=== PATIENT | male | born 1965 | race African-American/Black ===

== ENCOUNTER 2018-09-03 14:26 | Inpatient (IN) | payer OTHER ==
[2018-09-03 17:43] VITALS: BMI 30.2
--- NOTE | 2018-09-03 20:45 | HP ---
"CIWA Score - CIWA Score Nausea/Vomitin-Mild Nausea/No Vomiting Muscle Tremors: 3 Anxiety: 1-Mildly Anxious Agitation: 3 Paroxysmal Sweats: 4-Forehead w/Sweat Beads Orientation: 0-Oriented Tacttile Disturbances: 0-None Auditory Disturbances: 0-None Visual Disturbances: 0-None Headache: 2-Mild CIWA-Ar Total Score: 14 Admission [facility] Chief Complaint: Here for alcohol withdrawal. Allergies/Adverse Reactions: Allergies Allergy/AdvReac Type Severity Reaction Status Date / Time quetiapine [From Seroquel] Allergy Severe Verified 09/03/18 17:52 History of Present Illness: Started drinking alcohol at age 15. Has tried to stop drinking on own, tried out -patient help, but has never been in detox or rehab. Longest period of sobriety 1 day. Denies hx seizures. States hx of blackouts. Hx: HTN, CHF, Stents, Heart attack, DM, Tooth chipped/broken, Recent dizzy episode. Patient states on Plavix 75 mg Daily, ASA 81 mg Daily, Lantus 15 HS, Metformin 1000 mg PO BID, Albuterol - MDI, Symbicort, Lisinopril ? mg Daily and other B/P meds, Naproxen 375 mg PO q12h prn. States meds were recently filled and bag was lost. Pharmacy [facility] in [place] ([phone]) Search Terms: Abhinav Tristan, 1965 Search Date: 09/03/2018 08:41:36 PM The Drug Utilization Report below displays all of the controlled substance prescriptions, if any, that your patient has filled in the last twelve months. The information displayed on this report is compiled from pharmacy submissions to the Department, and accurately reflects the information as submitted by the pharmacies. This report was requested by: Kathy Rodriguez | Reference #: [id number] Others' Prescriptions Patient Name: Abhinav Tristan Date: 1965 Address: [address] [place] [address] Sex: Male Rx Written Rx Dispensed Drug Quantity Days Supply Prescriber Name 01/02/2018 01/02/2018 oxycodone-acetaminophen 7.5-325 mg tablet 12 4 Marco Michelle 01/02/2018 01/02/2018 alprazolam 0.5 mg tablet 6 3 Marco Michelle 12/25/2017 12/26/2017 chlordiazepoxide 25 mg capsule 2 1 Yulia Bronson () Patient Name: Abhinav Tristan Date: 1965 Address: [address] [place] [address] Sex: Male Rx Written Rx Dispensed Drug Quantity Days Supply Prescriber Name 12/25/2017 12/25/2017 oxycodone hcl 5 mg tablet 10 5 Yulia Bronson () Exam Limitations: No Limitations - Ebola screening Have you traveled outside of the country in the last 21 days: No Have you had contact with anyone from an Ebola affected area: No Have you been sick,other than usual withdrawal symptoms: No Do you have a fever: No - Review of Systems Constitutional: Diaphoresis, Changes in sleep (Drinks self to sleep) EENT: reports: Blurred Vision (Wears glasses), Dental Problems (Chipped and broken teeth. Started on Pen VK on 09/01/18 for 10 days..), Other (Increased pigments in eyes requiring sunglasses.) Respiratory: reports: SOB with Exertion (w/ walking stairs), Other (COPD) Cardiac: reports: Other (Hx Heart attack and CHF. Recent angioplast w/ stents. Takes Plavix and aspirin daily.) GI: reports: Indigestion (Acid reflux.) : reports: No Symptoms Reported Musculoskeletal: reports: Joint Pain (Occ scattered joint pain) Integumentary: reports: No Symptoms Reported Neuro: reports: Headache (r/t withdrawal), Tremors Endocrine: reports: No Symptoms Reported Hematology: reports: No Symptoms Reported Psychiatric: reports: Judgement Intact, Orientated x3, Agitated, Anxious, Depressed (Denies thoughts of harming self or others) Patient History - Patient Medical History Hx Asthma: No Hx Chronic Obstructive Pulmonary Disease (COPD): No Hx Cardiac Disorders: Yes Hx Hypertension: No Hx Seizures: No Hx Diabetes: No Hx Gastrointestinal Disorders: No Hx Genitourinary Disorders: No Hx Sexually Transmitted Disorders: No Hx Renal Disease (ESRD): No Hx Depression: Yes Hx Suicide Attempt: No Hx Schizophrenia: No - Patient Surgical History Past Surgical History: No Hx Neurologic Surgery: No Hx Cataract Extraction: No Hx Cardiac Surgery: No Hx Lung Surgery: No Hx Breast Surgery: No Hx Breast Biopsy: No Hx Abdominal Surgery: No Hx Appendectomy: No Hx Cholecystectomy: No Hx Genitourinary Surgery: No Hx Section: No Hx Orthopedic Surgery: No Anesthesia Reaction: No - PPD History Documented Results: Negative w/o proof Implanted On Prior [facility] Admission?: No PPD to be Administered?: Yes - Smoking Cessation Smoking history: Never smoked Have you smoked in the past 12 months: No Aproximately how many cigarettes per day: 10 Hx Chewing Tobacco Use: No Initiated information on smoking cessation: Yes 'Breaking Loose' booklet given: 09/03/18 - Substance & Tx. History Hx Alcohol Use: Yes Hx Substance Use: Yes Substance Use Type: Alcohol Hx Substance Use Treatment: Yes (out-patient alcohol years ago) - Substances Abused Alcohol Route: Oral Frequency: Daily Amount used: liquor- 3 pints, beer- 12 pack Age of first use: 15 Date of Last Use: 09/03/18 Admission Physical Exam [facility] - Vital Signs Vital Signs: Vital Signs - 24 hr 09/03/18 17:24 Temperature 97.0 F L Pulse Rate 100 H Respiratory 18 Rate Blood Pressure 155/103 H - Physical General Appearance: Yes: Mild Distress, Tremorous, Sweating, Anxious HEENTM: Yes: EOMI, Hearing grossly Normal, RON, Other ([place] brown sclera.) Respiratory: Yes: Lungs Clear, Normal Breath Sounds, No Respiratory Distress Neck: Yes: No masses,lesions,Nodules, Supple Breast: Yes: Breast Exam Deferred Cardiology: Yes: Regular Rhythm, Regular Rate, S1, S2 Abdominal: Yes: Non Tender, Soft, Increased Bowel Sounds, Protuberent ( Increased abdominal adiposity) Genitourinary: Yes: Within Normal Limits Back: Yes: Normal Inspection Musculoskeletal: Yes: full range of Motion, Gait Steady Extremities: Yes: Normal Capillary Refill, Normal Range of Motion, Tremors ( Mild tremors of hands upon extension) Neurological: Yes: yard switcher II-XII NML intact, Fully Oriented, Alert, Motor Strength 5/5, Normal Mood/Affect Integumentary: Yes: Normal Color, Dry (Decreased skin turgor.), Warm Lymphatic: Yes: Within Normal Limits - Diagnostic (1) Alcohol dependence with uncomplicated withdrawal Current Visit: Yes Status: Acute (2) HTN (hypertension) Current Visit: Yes Status: Chronic Qualifiers: Hypertension type: essential hypertension Qualified Code(s): I10 - Essential (primary) hypertension (3) H/O heart artery stent Current Visit: Yes Status: Chronic (4) Diabetes Current Visit: Yes Status: Chronic Qualifiers: Diabetes mellitus type: type 2 Diabetes mellitus terminal gauger supervisor insulin use: with terminal gauger supervisor use Diabetes mellitus complication status: with unspecified complications Qualified Code(s): E11.8 - Type 2 diabetes mellitus with unspecified complications; Z79.4 - lobsterman (current) use of insulin (5) COPD (chronic obstructive pulmonary disease) Current Visit: Yes Status: Chronic Qualifiers: COPD type: unspecified COPD Qualified Code(s): J44.9 - Chronic obstructive pulmonary disease, unspecified (6) Hx of myocardial infarction Current Visit: No Status: Suspected (7) Dental infection Current Visit: Yes Status: Acute Comment: Started on antibiotics prior to admission. Cleared for Admission S - Detox or Rehab [facility] Level of Care: Medically Managed Detox Regimen/Protocol: Librium [facility] Breath Alcohol Content Breath Alcohol Content: 0.050 Urine Drug Screen - Results Drug Screen Negative: Yes"
[2018-09-03] MEDS ORDERED: LOPERAMIDE HCL 2 MG CAPSULE PO PRN (21:19)
[2018-09-03] MEDS ORDERED: MAG HYDROX/AL HYDROX/SIMETH 30 ML UNIT-DOSE CUP PO PRN (21:19)
[2018-09-03] MEDS ORDERED: MAGNESIUM HYDROX 2400MG/30ML ORAL SUSPENSION 30 ML CUP PO PRN (21:19)
[2018-09-03] MEDS ORDERED: ACETAMINOPHEN 325 MG TABLET (FP) PO PRN (21:19)
[2018-09-03] MEDS ORDERED: MAGNESIUM CITRATE 300 ML BOTTLE PO PRN (21:19)
[2018-09-03] MEDS ORDERED: chlordiazePOXIDE HCL 25 MG CAPSULE PO PRN (21:19)
[2018-09-03] MEDS ORDERED: chlordiazePOXIDE HCL 25 MG CAPSULE PO ONE (21:19)
[2018-09-03] MEDS ORDERED: MENTHOL/PHENOL 1 EACH UD MM PRN (21:19)
[2018-09-03] MEDS ORDERED: ALBUTEROL SO4 8 GM HFA INHALER IH PRN (21:30)
[2018-09-03] MEDS ORDERED: cloNIDine HCL 0.1 MG TABLET PO ONE (21:35)
[2018-09-03] MEDS ORDERED: MELATONIN 5 MG TABLETS PO PRN (22:00)
[2018-09-03] MEDS: chlordiazePOXIDE HCL 25 MG CAPSULE PO SCH (22:32)
[2018-09-03] MEDS: THIAMINE HCL 100 MG TABLET (FP) PO SCH (22:32)
[2018-09-03] MEDS: INSULIN (LEVEMIR) 100 UNITS/ML UNITS SQ SCH (22:33)
[2018-09-03] MEDS: PENICILLIN V POTASSIUM 500 MG TABLET PO SCH (23:16)
[2018-09-04] LABS: URINE APPEARANCE CLEAR; URINE BILIRUBIN NEGATIVE (<2.0 mg/dL); URINE COLOR LTYELLOW; URINE GLUCOSE (UA) 3+ (NEGATIVE); URINE KETONE NEGATIVE (NEGATIVE); URINE LEUK ESTERASE NEGATIVE (NEGATIVE); URINE NITRITE NEGATIVE (NEGATIVE); URINE PROTEIN NEGATIVE (NEGATIVE); URINE UROBILINOGEN NEGATIVE mg/dL (0.2-1.0)
[2018-09-04] MEDS: PENICILLIN V POTASSIUM 500 MG TABLET PO SCH ×4 (06:36→23:03)
[2018-09-04] MEDS: metFORMIN HCL 500 MG TABLET (FP) PO SCH ×2 (06:36→17:33)
[2018-09-04] MEDS: chlordiazePOXIDE HCL 25 MG CAPSULE PO SCH ×5 (06:38→22:43)
[2018-09-04 10:21] LABS: HEMATOCRIT 48.3 % (35.4-49); HEMOGLOBIN 15.4 GM/dL (11.7-16.9); MCH 30.2 pg (25.7-33.7); MCHC 31.8 g/dl (32.0-35.9); MEAN CELL VOLUME 94.9 fl (80-96); MEAN PLT VOLUME 8.4 fl (7.5-11.1); PLATELET COUNT 164 K/MM3 (134-434); RBC 5.09 M/mm3 (4.00-5.60); RDW 14.2 % (11.9-15.9); WHITE BLOOD COUNT 6.2 K/mm3 (4.0-10.0)
[2018-09-04] MEDS: CLOPIDOGREL BISULFATE 75 MG TABLET (FP) PO SCH (10:38)
[2018-09-04] MEDS: PRENATAL VITAMINS W/ FOLIC ACID TABLET (FP) PO SCH (10:38)
[2018-09-04] MEDS: ASPIRIN 81 MG CHEWABLE TABLETS PO SCH (10:38)
[2018-09-04] MEDS: NICOTINE 14 MG/24 HOURS TOPICAL PATCH TD SCH (10:39)
[2018-09-04] MEDS: NICOTINE POLACRILEX 2 MG GUM BC PRN ×2 (10:41→22:05)
[2018-09-04] MEDS ORDERED: chlordiazePOXIDE HCL 25 MG CAPSULE PO PRN (10:43)
[2018-09-04 11:23] LABS: ALBUMIN 3.1 g/dl (3.4-5.0); ALK PHOS 92 U/L (45-117); ANION GAP 11 MMOL/L (8-16); BILIRUBIN,TOTAL 0.5 mg/dL (0.2-1); BLOOD UREA NITROGEN 13 mg/dL (7-18); CALCIUM 8.2 mg/dL (8.5-10.1); CHLORIDE 105 mmol/L (98-107); CO2 26 mmol/L (21-32); CREATININE 0.7 mg/dL (0.55-1.3); GLUCOSE,RANDOM 183 mg/dL (74-106); POTASSIUM 3.7 mmol/L (3.5-5.1); SGOT/AST 21 U/L (15-37); SGPT/ALT 29 U/L (13-61); SODIUM 141 mmol/L (136-145); TOT PROT 6.5 g/dl (6.4-8.2)
--- NOTE | 2018-09-04 12:59 | EKG ---
Test Reason : Blood Pressure : / mmHG Vent. Rate : 085 BPM Atrial Rate : 085 BPM P-R Int : 148 ms QRS Dur : 110 ms QT Int : 352 ms P-R-T Axes : 068 036 058 degrees QTc Int : 418 ms NORMAL SINUS RHYTHM NORMAL ECG Confirmed by MD CRYSTAL, NICO ([id number]) on 09/04/2018 12:59:21 PM Referred By: Confirmed By:NICO ROJAS MD
--- NOTE | 2018-09-04 14:40 | PN ---
S CIWA - CIWA Score Nausea/Vomitin Muscle Tremors: 4-Moderate,w/Arms Extend Anxiety: 4-Mod. Anxious/Guarded Agitation: 4-Moderately Restless Paroxysmal Sweats: 3 Orientation: 0-Oriented Tacttile Disturbances: 0-None Auditory Disturbances: 0-None Visual Disturbances: 0-None Headache: 0-None Present CIWA-Ar Total Score: 17 [facility] Progress Note (SOAP) Subjective: Sweating, tremor, anxious; patient requesting to have librium whole because he cannot tolerate the liquid. Patient stated that he takes heart medication but doesn't know the names and is requesting that someone called his pharmacy to get the name of his medication ([facility] at [address] [place] [address]). Objective: 09/04/18 14:38 Last Vital Signs Temp Pulse Resp BP Pulse Ox 98.7 F 92 H 18 152/89 09/04/18 13:20 09/04/18 13:20 09/04/18 13:20 09/04/18 13:20 Laboratory Tests 09/03/18 09/03/18 09/03/18 17:17 22:22 22:29 WBC RBC Hgb Hct MCV MCH MCHC RDW Plt Count MPV Sodium Potassium Chloride Carbon Dioxide Anion Gap BUN Creatinine Creat Clearance w eGFR POC Glucometer 301 264 Random Glucose Calcium Total Bilirubin AST ALT Alkaline Phosphatase Total Protein Albumin Urine Color Ltyellow Urine Appearance Clear Urine pH 6.0 Ur Specific [place] 1.028 Urine Protein Negative Urine Glucose (UA) 3+ H Urine Ketones Negative Urine Blood Negative Urine Nitrite Negative Urine Bilirubin Negative Urine Urobilinogen Negative Ur Leukocyte Esterase Negative RPR Titer 09/04/18 09/04/18 09/04/18 06:35 07:30 07:30 WBC 6.2 RBC 5.09 Hgb 15.4 Hct 48.3 MCV 94.9 MCH 30.2 MCHC 31.8 L RDW 14.2 Plt Count 164 MPV 8.4 Sodium 141 Potassium 3.7 Chloride 105 Carbon Dioxide 26 Anion Gap 11 BUN 13 Creatinine 0.7 Creat Clearance w eGFR > 60 POC Glucometer 167 Random Glucose 183 H Calcium 8.2 L Total Bilirubin 0.5 AST 21 ALT 29 Alkaline Phosphatase 92 Total Protein 6.5 Albumin 3.1 L Urine Color Urine Appearance Urine pH Ur Specific [place] Urine Protein Urine Glucose (UA) Urine Ketones Urine Blood Urine Nitrite Urine Bilirubin Urine Urobilinogen Ur Leukocyte Esterase RPR Titer 09/04/18 07:30 WBC RBC Hgb Hct MCV MCH MCHC RDW Plt Count MPV Sodium Potassium Chloride Carbon Dioxide Anion Gap BUN Creatinine Creat Clearance w eGFR POC Glucometer Random Glucose Calcium Total Bilirubin AST ALT Alkaline Phosphatase Total Protein Albumin Urine Color Urine Appearance Urine pH Ur Specific [place] Urine Protein Urine Glucose (UA) Urine Ketones Urine Blood Urine Nitrite Urine Bilirubin Urine Urobilinogen Ur Leukocyte Esterase RPR Titer Nonreactive Labs reviewed: hyperglycemia and glycosuria due to DMT2 Assessment: 09/04/18 14:39 Withdrawal symptoms Noted with glycosuria and hyperglycemia Plan: Continue detox Glycosuria and hyperglycemia r/t DMT2: continue present regimen. Will attempt to google and call patient's pharmacy regarding his home meds.
[2018-09-04] MEDS ORDERED: LISINOPRIL 20 MG TABLET (FP) PO ONE (15:36)
[2018-09-04] MEDS ORDERED: CARVEDILOL 6.25 MG TABLET (FP) PO ONE (15:40)
--- NOTE | 2018-09-04 17:39 | CONSULT ---
[facility] Psychiatric Consult - Data Date of interview: 09/04/18 Admission source: [facility] Identifying data: Patient refuses psychiatric evaluation. " I don't take psychiatric medications and I don't have psychiatric issues. Why should I be talking to a psychiatrist ? ". Mr Tristan left the office without answering any questions. Nursing staff is made aware.
[2018-09-04] MEDS: INSULIN (LEVEMIR) 100 UNITS/ML UNITS SQ SCH (21:00)
[2018-09-04] MEDS: INSULIN SLIDING SCALE (NOVOLOG) 1 VIAL SQ SCH (21:40)
[2018-09-04] MEDS: THIAMINE HCL 100 MG TABLET (FP) PO SCH (21:43)
[2018-09-04] MEDS ORDERED: INSULIN (NOVOLOG) ASPART 100 UNITS/ML 10ML VIAL ONE (21:47)
[2018-09-04] MEDS ORDERED: ATORVASTATIN CA 40 MG TABLET (FP) PO SCH (22:00)
[2018-09-04] MEDS ORDERED: chlordiazePOXIDE HCL 25 MG CAPSULE PO SCH (23:00)
[2018-09-04 23:44] LABS: URINE APPEARANCE CLEAR; URINE BILIRUBIN NEGATIVE (<2.0 mg/dL); URINE COLOR STRAW; URINE GLUCOSE (UA) 3+ (NEGATIVE); URINE KETONE NEGATIVE (NEGATIVE); URINE LEUK ESTERASE NEGATIVE (NEGATIVE); URINE NITRITE NEGATIVE (NEGATIVE); URINE PROTEIN NEGATIVE (NEGATIVE); URINE UROBILINOGEN NEGATIVE mg/dL (0.2-1.0)
[2018-09-05] MEDS: PENICILLIN V POTASSIUM 500 MG TABLET PO SCH ×2 (05:36→12:56)
[2018-09-05] MEDS: chlordiazePOXIDE HCL 25 MG CAPSULE PO SCH ×2 (05:36→10:46)
[2018-09-05] MEDS ORDERED: INSULIN (NOVOLOG) ASPART 100 UNITS/ML 10ML VIAL ONE (05:43)
[2018-09-05] MEDS: metFORMIN HCL 500 MG TABLET (FP) PO SCH (07:00)
[2018-09-05] MEDS: INSULIN SLIDING SCALE (NOVOLOG) 1 VIAL SQ SCH ×2 (07:02→11:20)
[2018-09-05] MEDS ORDERED: CARVEDILOL 6.25 MG TABLET (FP) PO SCH (10:00)
[2018-09-05] MEDS ORDERED: LISINOPRIL 20 MG TABLET (FP) PO SCH (10:00)
[2018-09-05] MEDS: CLOPIDOGREL BISULFATE 75 MG TABLET (FP) PO SCH (10:46)
[2018-09-05] MEDS: ASPIRIN 81 MG CHEWABLE TABLETS PO SCH (10:46)
[2018-09-05] MEDS: NICOTINE POLACRILEX 2 MG GUM BC PRN (10:46)
[2018-09-05] MEDS: PRENATAL VITAMINS W/ FOLIC ACID TABLET (FP) PO SCH (10:46)
[2018-09-05] MEDS: NICOTINE 14 MG/24 HOURS TOPICAL PATCH TD SCH (10:46)
--- NOTE | 2018-09-05 13:19 | PN ---
[facility] CIWA - CIWA Score Nausea/Vomitin-Mild Nausea/No Vomiting Muscle Tremors: 3 Anxiety: 3 Agitation: 3 Paroxysmal Sweats: 3 Orientation: 0-Oriented Tacttile Disturbances: 0-None Auditory Disturbances: 0-None Visual Disturbances: 0-None Headache: 1-Very Mild CIWA-Ar Total Score: 14 [facility] Progress Note (SOAP) Subjective: Sweating, interrupted sleep, back pain Objective: 09/05/18 13:17 Last Vital Signs Temp Pulse Resp BP Pulse Ox 96.9 F L 81 20 132/84 09/05/18 09:32 09/05/18 09:32 09/05/18 09:32 09/05/18 09:32 Laboratory Tests 09/03/18 09/03/18 09/03/18 17:17 22:22 22:29 WBC RBC Hgb Hct MCV MCH MCHC RDW Plt Count MPV Sodium Potassium Chloride Carbon Dioxide Anion Gap BUN Creatinine Creat Clearance w eGFR POC Glucometer 301 264 Random Glucose Calcium Total Bilirubin AST ALT Alkaline Phosphatase Total Protein Albumin Urine Color Ltyellow Urine Appearance Clear Urine pH 6.0 Ur Specific [place] 1.028 Urine Protein Negative Urine Glucose (UA) 3+ H Urine Ketones Negative Urine Blood Negative Urine Nitrite Negative Urine Bilirubin Negative Urine Urobilinogen Negative Ur Leukocyte Esterase Negative RPR Titer 09/04/18 09/04/18 09/04/18 06:35 07:30 07:30 WBC 6.2 RBC 5.09 Hgb 15.4 Hct 48.3 MCV 94.9 MCH 30.2 MCHC 31.8 L RDW 14.2 Plt Count 164 MPV 8.4 Sodium 141 Potassium 3.7 Chloride 105 Carbon Dioxide 26 Anion Gap 11 BUN 13 Creatinine 0.7 Creat Clearance w eGFR > 60 POC Glucometer 167 Random Glucose 183 H Calcium 8.2 L Total Bilirubin 0.5 AST 21 ALT 29 Alkaline Phosphatase 92 Total Protein 6.5 Albumin 3.1 L Urine Color Urine Appearance Urine pH Ur Specific [place] Urine Protein Urine Glucose (UA) Urine Ketones Urine Blood Urine Nitrite Urine Bilirubin Urine Urobilinogen Ur Leukocyte Esterase RPR Titer 09/04/18 09/04/18 09/04/18 07:30 16:36 16:58 WBC RBC Hgb Hct MCV MCH MCHC RDW Plt Count MPV Sodium Potassium Chloride Carbon Dioxide Anion Gap BUN Creatinine Creat Clearance w eGFR POC Glucometer 333 Random Glucose Calcium Total Bilirubin AST ALT Alkaline Phosphatase Total Protein Albumin Urine Color Straw Urine Appearance Clear Urine pH 6.0 Ur Specific [place] 1.029 Urine Protein Negative Urine Glucose (UA) 3+ H Urine Ketones Negative Urine Blood Negative Urine Nitrite Negative Urine Bilirubin Negative Urine Urobilinogen Negative Ur Leukocyte Esterase Negative RPR Titer Nonreactive 09/04/18 09/05/18 20:47 05:35 WBC RBC Hgb Hct MCV MCH MCHC RDW Plt Count MPV Sodium Potassium Chloride Carbon Dioxide Anion Gap BUN Creatinine Creat Clearance w eGFR POC Glucometer 446 208 Random Glucose Calcium Total Bilirubin AST ALT Alkaline Phosphatase Total Protein Albumin Urine Color Urine Appearance Urine pH Ur Specific [place] Urine Protein Urine Glucose (UA) Urine Ketones Urine Blood Urine Nitrite Urine Bilirubin Urine Urobilinogen Ur Leukocyte Esterase RPR Titer Labs reviewed Assessment: 09/05/18 13:18 Withdrawal symptoms Plan: Continue detox Encouraged PO water intake
[2018-09-05 14:31] VITALS: BP 128/84; PULSE 96; TEMP 96.8
--- NOTE | 2018-09-05 15:47 | DS ---
[facility] Detox Discharge Summary Admission Date: 09/03/18 Discharge Date: 09/05/18 - History Present History: Alcohol Dependence Additional Comments: Patient demanded to leave AMA. As per patient, he needs to go to a detox facility where he can smoke his cigarettes because he would like to smoke cigarette and he's not allowed to smoke here. As per patient, the nicotine patch cause him to itch and he doesn't want nicorette gum because his back teeth are cracked and the nicorette gum get grabbed in it and he prefers to smoke. Manifest Clerk and counselor Fernando encouraged patient to stay but he refused. Patient instructed to call 911 if he feels sick or experienced any withdrawal symptoms and to see his PCP within 3 days. Patient verbalized understanding. Pertinent Past History: Alcohol dependence HTN Heart stent due to ME ME DMT2 with hyperglycemia COPD - Physical Exam Results Vital Signs: Vital Signs Temperature 96.8 F L 09/05/18 14:30 Pulse Rate 96 H 09/05/18 14:30 Respiratory Rate 20 09/05/18 14:30 Blood Pressure 128/84 09/05/18 14:30 O2 Sat by Pulse Oximetry (%) Pertinent Admission Physical Exam Findings: Withdrawal symptoms Laboratory Tests 09/03/18 09/03/18 09/03/18 17:17 22:22 22:29 WBC RBC Hgb Hct MCV MCH MCHC RDW Plt Count MPV Sodium Potassium Chloride Carbon Dioxide Anion Gap BUN Creatinine Creat Clearance w eGFR POC Glucometer 301 264 Random Glucose Calcium Total Bilirubin AST ALT Alkaline Phosphatase Total Protein Albumin Urine Color Ltyellow Urine Appearance Clear Urine pH 6.0 Ur Specific [place] 1.028 Urine Protein Negative Urine Glucose (UA) 3+ H Urine Ketones Negative Urine Blood Negative Urine Nitrite Negative Urine Bilirubin Negative Urine Urobilinogen Negative Ur Leukocyte Esterase Negative RPR Titer 09/04/18 09/04/18 09/04/18 06:35 07:30 07:30 WBC 6.2 RBC 5.09 Hgb 15.4 Hct 48.3 MCV 94.9 MCH 30.2 MCHC 31.8 L RDW 14.2 Plt Count 164 MPV 8.4 Sodium 141 Potassium 3.7 Chloride 105 Carbon Dioxide 26 Anion Gap 11 BUN 13 Creatinine 0.7 Creat Clearance w eGFR > 60 POC Glucometer 167 Random Glucose 183 H Calcium 8.2 L Total Bilirubin 0.5 AST 21 ALT 29 Alkaline Phosphatase 92 Total Protein 6.5 Albumin 3.1 L Urine Color Urine Appearance Urine pH Ur Specific [place] Urine Protein Urine Glucose (UA) Urine Ketones Urine Blood Urine Nitrite Urine Bilirubin Urine Urobilinogen Ur Leukocyte Esterase RPR Titer 09/04/18 09/04/18 09/04/18 07:30 16:36 16:58 WBC RBC Hgb Hct MCV MCH MCHC RDW Plt Count MPV Sodium Potassium Chloride Carbon Dioxide Anion Gap BUN Creatinine Creat Clearance w eGFR POC Glucometer 333 Random Glucose Calcium Total Bilirubin AST ALT Alkaline Phosphatase Total Protein Albumin Urine Color Straw Urine Appearance Clear Urine pH 6.0 Ur Specific [place] 1.029 Urine Protein Negative Urine Glucose (UA) 3+ H Urine Ketones Negative Urine Blood Negative Urine Nitrite Negative Urine Bilirubin Negative Urine Urobilinogen Negative Ur Leukocyte Esterase Negative RPR Titer Nonreactive 09/04/18 09/05/18 20:47 05:35 WBC RBC Hgb Hct MCV MCH MCHC RDW Plt Count MPV Sodium Potassium Chloride Carbon Dioxide Anion Gap BUN Creatinine Creat Clearance w eGFR POC Glucometer 446 208 Random Glucose Calcium Total Bilirubin AST ALT Alkaline Phosphatase Total Protein Albumin Urine Color Urine Appearance Urine pH Ur Specific [place] Urine Protein Urine Glucose (UA) Urine Ketones Urine Blood Urine Nitrite Urine Bilirubin Urine Urobilinogen Ur Leukocyte Esterase RPR Titer Labs reviewed - Medication Discharge Medications: Ambulatory Orders Metformin HCl [Glucophage] 1,000 mg PO BID 09/03/18 - Diagnosis (1) Glycosuria Current Visit: Yes Status: Acute (2) Type 2 diabetes mellitus with hyperglycemia Current Visit: Yes Status: Chronic (3) Alcohol dependence with uncomplicated withdrawal Current Visit: Yes Status: Acute (4) Dental infection Current Visit: Yes Status: Acute (5) COPD (chronic obstructive pulmonary disease) Current Visit: Yes Status: Chronic Qualifiers: COPD type: unspecified COPD Qualified Code(s): J44.9 - Chronic obstructive pulmonary disease, unspecified (6) H/O heart artery stent Current Visit: Yes Status: Chronic (7) HTN (hypertension) Current Visit: Yes Status: Chronic Qualifiers: Hypertension type: essential hypertension Qualified Code(s): I10 - Essential (primary) hypertension (8) Hx of myocardial infarction Current Visit: Yes Status: Chronic - AMA Did Patient Leave Against Medical Advice: Yes (Patient instructed to call 911 if sick or any withdrawal symptoms )
[2018-09-05] MEDS ORDERED: chlordiazePOXIDE 5 MG CAPSULE PO SCH ×2 (23:00)
[2018-09-06] MEDS ORDERED: chlordiazePOXIDE HCL 10 MG CAPSULE PO SCH ×2 (23:00)
== END 2018-09-05 16:11 | disposition left against medical advice (07) | DRG 894 ==
LOC: YASAS 14:26 → Y3N 17:36
PROC: HZ2ZZZZ Detoxification Services for Substance Abuse Treatment (ICD-10-PCS; principal; 2018-09-03)
DX: F10.230 Alcohol dependence with withdrawal, uncomplicated (principal); I10 Essential (primary) hypertension; E11.65 Type 2 diabetes mellitus with hyperglycemia; R81 Glycosuria; K04.7 Periapical abscess without sinus; J44.9 Chronic obstructive pulmonary disease, unspecified; I25.2 Old myocardial infarction; Z95.5 Presence of coronary angioplasty implant and graft
CPT/HCPCS: 36415; 80053; 81003; 82962; 85027; 86593; 93005; 93010; J0735

== ENCOUNTER 2018-10-06 10:39 | Inpatient (IN) | payer OTHER ==
[2018-10-06 12:02] VITALS: BMI 28.2
--- NOTE | 2018-10-06 12:09 | HP ---
CIWA Score Nausea/Vomitin Muscle Tremors: 2 Anxiety: 2 Agitation: 2 Paroxysmal Sweats: 1-Minimal Palms Moist Orientation: 0-Oriented Tacttile Disturbances: 1-Very Mild Itch/Numbness Auditory Disturbances: 1-Very Mild Visual Disturbances: 0-None Headache: 2-Mild CIWA-Ar Total Score: 13 - Admission Criteria OASAS Guidelines: Admission for Medically Managed Detox: Requires at least one of the followin. CIWA greater than 12 2. Seizures within the past 24 hours 3. Delirium tremens within the past 24 hours 4. Hallucinations within the past 24 hours 5. Acute intervention needed for co occurring medical disorder 6. Acute intervention needed for co occurring psychiatric disorder 7. Severe withdrawal that cannot be handled at a lower level of care (continued vomiting, continued diarrhea, abnormal vital signs) requiring intravenous medication and/or fluids 8. Patient presents the following: CIWA greater than 12 Admission Criteria Met: Admission criteria met Admission ROS BHS - HPI Chief Complaint: i nee help to stop drinking alcohol Allergies/Adverse Reactions: Allergies Allergy/AdvReac Type Severity Reaction Status Date / Time quetiapine [From Seroquel] Allergy Severe Verified 10/06/18 15:39 History of Present Illness: his 52 years old male with alcohol dependence,seeking detox,withdrawal symptom, last detox 09.03.18 to 09/05/18 syncope alcohol elated history of hypertension,iddm,old mi in 2009 with 2 stents/03/30 with 3 stents nicotine dependence depression longest of sobriety 1 year Exam Limitations: No Limitations - Ebola screening Have you traveled outside of the country in the last 21 days: No (N) Have you had contact with anyone from an Ebola affected area: No Have you been sick,other than usual withdrawal symptoms: No Do you have a fever: No - Review of Systems Constitutional: Loss of Appetite, Malaise, Night Sweats, Changes in sleep, Weakness EENT: reports: Tearing, Nose Congestion Respiratory: reports: No Symptoms reported Cardiac: reports: No Symptoms Reported GI: reports: Nausea, Poor Appetite, Abdominal cramping Musculoskeletal: reports: Back Pain, Muscle Pain Integumentary: reports: Dryness Neuro: reports: Headache, Tremors Endocrine: reports: No Symptoms Reported, Other (iddm) Hematology: reports: No Symptoms Reported Psychiatric: reports: Judgement Intact, Mood/Affect Appropiate, Orientated x3 Patient History - Patient Medical History Hx Asthma: No Hx Chronic Obstructive Pulmonary Disease (COPD): Yes (on albuterol inhaler, spiriva) Hx Cancer: No Hx Cardiac Disorders: Yes (old mi ,s/p angioplasty with 2 stent in 2009,3 stent in [place]) Hx Congestive Heart Failure: No Hx Hypertension: No Hx Hypercholesterolemia: No Hx Pacemaker: No HX Cerebrovascular Accident: No Hx Seizures: No Hx Dementia: No Hx Diabetes: Yes (iddm) Hx Gastrointestinal Disorders: No Hx Liver Disease: No Hx Genitourinary Disorders: No Hx Sexually Transmitted Disorders: No Hx Renal Disease (ESRD): No Hx Thyroid Disease: No Hx Human Immunodeficiency Virus (HIV): No (last -03/30 negative) Hx Hepatitis C: No Hx Depression: Yes Hx Suicide Attempt: No Hx Bipolar Disorder: No Hx Schizophrenia: No Other Medical History: no sucidal,no homicidal - Patient Surgical History Past Surgical History: No Hx Neurologic Surgery: No Hx Cataract Extraction: No Hx Cardiac Surgery: Yes (angioplast with 2 stent in 2009,3 stent in [place]) Hx Lung Surgery: No Hx Breast Surgery: No Hx Breast Biopsy: No Hx Abdominal Surgery: No Hx Appendectomy: No Hx Cholecystectomy: No Hx Genitourinary Surgery: No Hx Section: No Hx Orthopedic Surgery: No Hx Hysterectomy: No Anesthesia Reaction: No - PPD History Previous Implant?: Yes Implanted On Prior [facility] Admission?: Yes Date: 09/05/18 Results: no reading PPD to be Administered?: Yes - Smoking Cessation Smoking history: Current every day smoker Have you smoked in the past 12 months: No Aproximately how many cigarettes per day: 10 Cigars Per Day: 0 Hx Chewing Tobacco Use: No Initiated information on smoking cessation: Yes 'Breaking Loose' booklet given: 10/06/18 - Substance & Tx. History Hx Alcohol Use: Yes Hx Substance Use: No Substance Use Type: Alcohol Hx Substance Use Treatment: Yes ([facility] 09/03/18 to 09/05/18) - Substances Abused Alcohol Route: Oral Frequency: Daily Amount used: 2 pints of vodka/2 of 6 packs of 24 ozs of beer Age of first use: 15 Date of Last Use: 10/06/18 Family Disease History - Family Disease History Family History: Denies Admission Physical Exam BHS - Vital Signs Vital Signs: Vital Signs - 24 hr 10/06/18 12:01 Temperature 97.0 F L Pulse Rate 101 H Respiratory 19 Rate Blood Pressure 177/92 H - Physical General Appearance: Yes: Moderate Distress, Tremorous, Irritable, Sweating, Anxious HEENTM: Yes: Normal ENT Inspection, RON, Pharynx Normal Respiratory: Yes: Lungs Clear, Normal Breath Sounds, No Respiratory Distress Neck: Yes: Within Normal Limits, Supple, Trachea in good position Breast: Yes: Breast Exam Deferred Cardiology: Yes: Within Normal Limits, Regular Rhythm, Regular Rate, S1, S2 Abdominal: Yes: Within Normal Limits, Normal Bowel Sounds, Non Tender, Flat, Soft Genitourinary: Yes: Within Normal Limits Back: Yes: Muscle Spasm Extremities: Yes: Tremors Neurological: Yes: tablet repair II-XII NML intact, Alert, Motor Strength 5/5 Integumentary: Yes: Dry Lymphatic: Yes: Within Normal Limits - Diagnostic (1) Alcohol dependence with uncomplicated withdrawal Current Visit: No Status: Acute (2) IDDM (insulin dependent diabetes mellitus) Current Visit: Yes Status: Acute (3) H/O heart artery stent Current Visit: No Status: Chronic (4) HTN (hypertension) Current Visit: No Status: Chronic Qualifiers: Hypertension type: essential hypertension Qualified Code(s): I10 - Essential (primary) hypertension (5) Hx of myocardial infarction Current Visit: No Status: Chronic (6) COPD (chronic obstructive pulmonary disease) Current Visit: Yes Status: Acute (7) Nicotine dependence Current Visit: Yes Status: Acute (8) Syncope Current Visit: Yes Status: Acute (9) Hypercholesterolemia Current Visit: Yes Status: Acute Cleared for Admission S - Detox or Rehab [facility] Level of Care: Medically Managed Detox Regimen/Protocol: Librium [facility] Breath Alcohol Content Breath Alcohol Content: 0 Urine Drug Screen - Results Drug Screen Negative: No Urine Drug Screen Results: BZO-Benzodiazepines
[2018-10-06] MEDS ORDERED: ACETAMINOPHEN 325 MG TABLET (FP) PO PRN (12:37)
[2018-10-06] MEDS ORDERED: hydrOXYzine PAMOATE 50 MG CAPSULE (FP) PO PRN (12:37)
[2018-10-06] MEDS ORDERED: chlordiazePOXIDE HCL 25 MG CAPSULE PO PRN (12:37)
[2018-10-06] MEDS ORDERED: MENTHOL/PHENOL 1 EACH UD MM PRN (12:37)
[2018-10-06] MEDS ORDERED: guaiFENesin/D-METHORPHAN HB 10 ML UNIT-DOSE CUPS PO PRN (12:37)
[2018-10-06] MEDS ORDERED: MAGNESIUM HYDROX 2400MG/30ML ORAL SUSPENSION 30 ML CUP PO PRN (12:37)
[2018-10-06] MEDS ORDERED: P-EPHED 60MG/TRIPROLIDI 2.5MG TABLET PO PRN (12:37)
[2018-10-06] MEDS ORDERED: MAGNESIUM CITRATE 300 ML BOTTLE PO PRN (12:37)
[2018-10-06] MEDS ORDERED: IBUPROFEN 400 MG TABLET (FP) PO PRN (12:37)
[2018-10-06] MEDS ORDERED: MAG HYDROX/AL HYDROX/SIMETH 30 ML UNIT-DOSE CUP PO PRN (12:37)
[2018-10-06] MEDS ORDERED: LOPERAMIDE HCL 2 MG CAPSULE PO PRN (12:37)
[2018-10-06] MEDS: chlordiazePOXIDE HCL 25 MG CAPSULE PO SCH ×2 (16:48→22:16)
[2018-10-06] MEDS: NICOTINE POLACRILEX 2 MG GUM BUC PRN (16:53)
[2018-10-06] MEDS: NICOTINE 21 MG/24 HOURS TOPICAL PATCH TD SCH (16:56)
[2018-10-06] MEDS ORDERED: MELATONIN 5 MG TABLETS PO PRN (22:00)
[2018-10-06] MEDS: THIAMINE HCL 100 MG TABLET (FP) PO SCH (22:16)
[2018-10-06] MEDS: ATORVASTATIN CA 40 MG TABLET (FP) PO SCH (22:16)
[2018-10-06] MEDS: CARVEDILOL 6.25 MG TABLET (FP) PO SCH (22:16)
[2018-10-06] MEDS: metFORMIN HCL 500 MG TABLET (FP) PO SCH (22:16)
[2018-10-06] MEDS: INSULIN (LEVEMIR) 100 UNITS/ML UNITS SQ SCH (22:19)
[2018-10-06 22:46] LABS: URINE APPEARANCE CLEAR; URINE BILIRUBIN NEGATIVE (<2.0 mg/dL); URINE COLOR STRAW; URINE GLUCOSE (UA) 3+ (NEGATIVE); URINE KETONE NEGATIVE (NEGATIVE); URINE LEUK ESTERASE NEGATIVE (NEGATIVE); URINE NITRITE NEGATIVE (NEGATIVE); URINE PROTEIN NEGATIVE (NEGATIVE); URINE UROBILINOGEN NEGATIVE mg/dL (0.2-1.0)
[2018-10-07] MEDS: chlordiazePOXIDE HCL 25 MG CAPSULE PO SCH ×4 (06:58→22:12)
[2018-10-07] MEDS: metFORMIN HCL 500 MG TABLET (FP) PO SCH ×2 (09:41→17:15)
[2018-10-07] MEDS: ASPIRIN 81 MG CHEWABLE TABLETS PO SCH (09:41)
[2018-10-07] MEDS: CARVEDILOL 6.25 MG TABLET (FP) PO SCH ×2 (09:42→22:12)
[2018-10-07] MEDS: CLOPIDOGREL BISULFATE 75 MG TABLET (FP) PO SCH (09:42)
[2018-10-07] MEDS: PRENATAL VITAMINS W/ FOLIC ACID TABLET (FP) PO SCH (09:42)
[2018-10-07] MEDS: NICOTINE POLACRILEX 2 MG GUM BUC PRN ×2 (09:42→20:33)
[2018-10-07] MEDS: NICOTINE 21 MG/24 HOURS TOPICAL PATCH TD SCH (09:42)
--- NOTE | 2018-10-07 09:42 | CONSULT ---
[facility] Psychiatric Consult - Data Date of interview: 10/07/18 Admission source: [facility] Identifying data: This is a 52 y/o male single, unemployed on public assistance. Patient is marginally cooperative for the examination, he was seen bedside and mostlky complain about lack of staff care Substance Abuse History: Admitted to Detox for ETOH and nicotine dependence, and withdrawal, he drinks beer and Vodka on a daily basis. he complains of nausea, sweating and back pain. A review of his records indicate that this is his second Detox admission to [facility] , his most recent admission was in August and left the program AMA after 2-3 days. Patient refuses to provide additional information about his substance iuse history, occasionally loud. Please refer to addiction counselor note Medical History: Records reviewed indicate multiple medical problems; IDDM, HTN , history of UT,cardiac surgery, angioplasty and stent placements , COPD Psychiatric History: Patient denies psychiatric history, he said: i do not need to talk to a psychiatrist, I am not suicidal or homicidal. I need pain medication Physical/Sexual Abuse/Trauma History: Patient is uncooperative Additional Comment: Patient is loud and uncooperative Mental Status Exam - Mental Status Exam Alert and Oriented to: Person Cognitive Function: Fair Patient Appearance: Unkempt, Disheveled Mood: Angry, Hostile, Irritable Affect: Inappropriate, Constricted Patient Behavior: Inappropriate, Restless, Uncooperative, Belligerent, Impulsive Speech Pattern: Slurred, Pressured Voice Loudness: Moderately Loud Thought Process: Circumstantial Hallucinations: Denies Suicidal Ideation: Denies Homicidal Ideation: Denies Insight/Judgement: Poor Additional Comments: Unable to complete his mental status examination as patient has been mostly uncooperative with the examiner Psychiatric Findings - Problem List ([place] 1, 2,3) (1) Mood disorder Current Visit: Yes Status: Acute (2) COPD (chronic obstructive pulmonary disease) Current Visit: Yes Status: Acute (3) Hypercholesterolemia Current Visit: Yes Status: Acute (4) Nicotine dependence Current Visit: Yes Status: Acute (5) Alcohol dependence with uncomplicated withdrawal Current Visit: No Status: Acute (6) Glycosuria Current Visit: No Status: Acute (7) COPD (chronic obstructive pulmonary disease) Current Visit: No Status: Chronic Qualifiers: COPD type: unspecified COPD Qualified Code(s): J44.9 - Chronic obstructive pulmonary disease, unspecified (8) H/O heart artery stent Current Visit: No Status: Chronic (9) HTN (hypertension) Current Visit: No Status: Chronic Qualifiers: Hypertension type: essential hypertension Qualified Code(s): I10 - Essential (primary) hypertension (10) Hx of myocardial infarction Current Visit: No Status: Chronic (11) Type 2 diabetes mellitus with hyperglycemia Current Visit: No Status: Chronic - Initial Treatment Plan Initial Treatment Plan: Continue Detox treatment. Monitor progress. Reassess psychiatric examination oncw patient is more cooperative. Observe for ETOH withdrawal
[2018-10-07] MEDS ORDERED: LISINOPRIL 20 MG TABLET (FP) PO SCH (10:00)
[2018-10-07 10:38] LABS: HEMOGLOBIN 15.4 GM/dL (11.7-16.9); MCH 30.1 pg (25.7-33.7); MEAN PLT VOLUME 8.2 fl (7.5-11.1); PLATELET COUNT 165 K/MM3 (134-434); RDW 14.2 % (11.9-15.9); WHITE BLOOD COUNT 5.5 K/mm3 (4.0-10.0)
[2018-10-07 10:43] LABS: ALK PHOS 94 U/L (45-117); ANION GAP 9 MMOL/L (8-16); BILIRUBIN,TOTAL 0.6 mg/dL (0.2-1); BLOOD UREA NITROGEN 12 mg/dL (7-18); CALCIUM 8.3 mg/dL (8.5-10.1); CHLORIDE 103 mmol/L (98-107); CO2 28 mmol/L (21-32); CREATININE 0.8 mg/dL (0.55-1.3); GLUCOSE,RANDOM 122 mg/dL (74-106); POTASSIUM 3.7 mmol/L (3.5-5.1); SGOT/AST 20 U/L (15-37); SGPT/ALT 23 U/L (13-61); SODIUM 140 mmol/L (136-145); TOT PROT 6.5 g/dl (6.4-8.2)
[2018-10-07] MEDS ORDERED: chlordiazePOXIDE HCL 25 MG CAPSULE PO PRN (11:01)
[2018-10-07] MEDS ORDERED: chlordiazePOXIDE HCL 25 MG CAPSULE PO SCH (11:05)
--- NOTE | 2018-10-07 13:15 | PN ---
[facility] Progress Note Note: Patient was seen and re-evaluated, he was cooperative at this time. he reports a history of Bipolar disorder and has not been on his neuroleptic medciations for several years He denies feeling depressed or anxious, denies psychosis, acknowledged occasional mood swings He is allergic to Seroquel. his mnain concern is insomina and would like to be medicated ro improve his sleep will follow
--- NOTE | 2018-10-07 13:43 | PN ---
[facility] CIWA - CIWA Score Nausea/Vomitin-Mild Nausea/No Vomiting Muscle Tremors: 4-Moderate,w/Arms Extend Anxiety: 5 Agitation: 4-Moderately Restless Paroxysmal Sweats: 4-Forehead w/Sweat Beads Orientation: 0-Oriented Tacttile Disturbances: 0-None Auditory Disturbances: 0-None Visual Disturbances: 0-None Headache: 0-None Present CIWA-Ar Total Score: 18 BHS Progress Note (SOAP) Subjective: Back pain, neck pain, sweating, agitated, irritable, interrupted sleep Objective: 10/07/18 13:40 Last Vital Signs Temp Pulse Resp BP Pulse Ox 96.8 F L 84 20 162/85 10/07/18 13:35 10/07/18 13:35 10/07/18 13:35 10/07/18 13:35 Elevated b/p (h/o htn, on med) Laboratory Tests 10/06/18 10/06/18 10/06/18 15:56 16:39 22:15 WBC RBC Hgb Hct MCV MCH MCHC RDW Plt Count MPV Sodium Potassium Chloride Carbon Dioxide Anion Gap BUN Creatinine Creat Clearance w eGFR POC Glucometer 207 224 206 Random Glucose Calcium Total Bilirubin AST ALT Alkaline Phosphatase Total Protein Albumin Urine Color Urine Appearance Urine pH Ur Specific [place] Urine Protein Urine Glucose (UA) Urine Ketones Urine Blood Urine Nitrite Urine Bilirubin Urine Urobilinogen Ur Leukocyte Esterase RPR Titer 10/06/18 10/07/18 10/07/18 22:30 07:08 07:30 WBC 5.5 RBC 5.10 Hgb 15.4 Hct 48.0 MCV 94.0 MCH 30.1 MCHC 32.0 RDW 14.2 Plt Count 165 MPV 8.2 Sodium Potassium Chloride Carbon Dioxide Anion Gap BUN Creatinine Creat Clearance w eGFR POC Glucometer 120 Random Glucose Calcium Total Bilirubin AST ALT Alkaline Phosphatase Total Protein Albumin Urine Color Straw Urine Appearance Clear Urine pH 6.0 Ur Specific [place] 1.027 Urine Protein Negative Urine Glucose (UA) 3+ H Urine Ketones Negative Urine Blood Negative Urine Nitrite Negative Urine Bilirubin Negative Urine Urobilinogen Negative Ur Leukocyte Esterase Negative RPR Titer 10/07/18 10/07/18 07:30 07:30 WBC RBC Hgb Hct MCV MCH MCHC RDW Plt Count MPV Sodium 140 Potassium 3.7 Chloride 103 Carbon Dioxide 28 Anion Gap 9 BUN 12 Creatinine 0.8 Creat Clearance w eGFR > 60 POC Glucometer Random Glucose 122 H Calcium 8.3 L Total Bilirubin 0.6 AST 20 ALT 23 Alkaline Phosphatase 94 Total Protein 6.5 Albumin 3.0 L Urine Color Urine Appearance Urine pH Ur Specific [place] Urine Protein Urine Glucose (UA) Urine Ketones Urine Blood Urine Nitrite Urine Bilirubin Urine Urobilinogen Ur Leukocyte Esterase RPR Titer Nonreactive Labs reviewed: UA shows 3+ glucose, elevated glucose due to dm Assessment: 10/07/18 13:42 Withdrawal symptoms Noted with hyperglycemia and glycosuria Plan: Continue detox Hyperglycemia and glycosuria secondary to uncontrolled DMT2: continue diabetic regimen, encouraged PO water hydration, avoid/decrease sugary intake
--- NOTE | 2018-10-07 13:47 | EKG ---
Test Reason : Blood Pressure : / mmHG Vent. Rate : 089 BPM Atrial Rate : 089 BPM P-R Int : 142 ms QRS Dur : 104 ms QT Int : 360 ms P-R-T Axes : 062 039 051 degrees QTc Int : 438 ms NORMAL SINUS RHYTHM NORMAL ECG WHEN COMPARED WITH ECG OF 03-SEP-2018 21:53, NO SIGNIFICANT CHANGE WAS FOUND Confirmed by TOSIN QUIGLEY MD ([id number]) on 10/07/2018 1:46:28 PM Referred By: Confirmed By:TOSIN QUIGLEY MD
[2018-10-07] MEDS: ALBUTEROL SO4 8 GM HFA INHALER IH PRN (16:25)
[2018-10-07] MEDS ORDERED: INSULIN SLIDING SCALE (NOVOLOG) 1 VIAL SQ ONE (21:04)
[2018-10-07] MEDS: INSULIN (LEVEMIR) 100 UNITS/ML UNITS SQ SCH (22:11)
[2018-10-07] MEDS: INSULIN (NOVOLOG) ASPART 100 UNITS/ML 10ML VIAL SQ SCH (22:11)
[2018-10-07] MEDS: ATORVASTATIN CA 40 MG TABLET (FP) PO SCH (22:12)
[2018-10-07] MEDS: THIAMINE HCL 100 MG TABLET (FP) PO SCH (22:13)
[2018-10-08] MEDS: chlordiazePOXIDE HCL 25 MG CAPSULE PO SCH ×2 (06:27→10:15)
[2018-10-08] MEDS: metFORMIN HCL 500 MG TABLET (FP) PO SCH ×2 (06:28→17:14)
[2018-10-08] MEDS ORDERED: INSULIN SLIDING SCALE (NOVOLOG) 1 VIAL SQ ONE ×3 (06:30→17:02)
[2018-10-08] MEDS: INSULIN (NOVOLOG) ASPART 100 UNITS/ML 10ML VIAL SQ SCH ×4 (06:37→21:48)
[2018-10-08] MEDS: HYDROCHLOROTHIAZIDE 25 MG TABLET (FP) PO SCH (07:50)
[2018-10-08] MEDS: ASPIRIN 81 MG CHEWABLE TABLETS PO SCH (10:15)
[2018-10-08] MEDS: LISINOPRIL 20 MG TABLET (FP) PO SCH (10:15)
[2018-10-08] MEDS: NICOTINE 21 MG/24 HOURS TOPICAL PATCH TD SCH (10:15)
[2018-10-08] MEDS: PRENATAL VITAMINS W/ FOLIC ACID TABLET (FP) PO SCH (10:15)
[2018-10-08] MEDS: CLOPIDOGREL BISULFATE 75 MG TABLET (FP) PO SCH (10:15)
[2018-10-08] MEDS: NICOTINE POLACRILEX 2 MG GUM BUC PRN (10:15)
[2018-10-08] MEDS: CARVEDILOL 6.25 MG TABLET (FP) PO SCH ×2 (10:15→21:43)
[2018-10-08] MEDS: ALBUTEROL SO4 8 GM HFA INHALER IH PRN ×2 (11:01→17:20)
--- NOTE | 2018-10-08 11:08 | PN ---
[facility] CIWA - CIWA Score Nausea/Vomitin-Mild Nausea/No Vomiting Muscle Tremors: 4-Moderate,w/Arms Extend Anxiety: 3 Agitation: 3 Paroxysmal Sweats: 1-Minimal Palms Moist Orientation: 0-Oriented Tacttile Disturbances: 1-Very Mild Itch/Numbness Auditory Disturbances: 0-None Visual Disturbances: 0-None Headache: 1-Very Mild CIWA-Ar Total Score: 14 [facility] Progress Note (SOAP) Subjective: restlessness irritable sweat tremor gi distress agitative Objective: 10/08/18 11:09 Vital Signs Temperature 96.7 F L 10/08/18 09:04 Pulse Rate 84 10/08/18 09:04 Respiratory Rate 18 10/08/18 09:04 Blood Pressure 128/83 10/08/18 09:04 O2 Sat by Pulse Oximetry (%) Laboratory Last Values WBC 5.5 K/mm3 (4.0-10.0) 10/07/18 07:30 RBC 5.10 M/mm3 (4.00-5.60) 10/07/18 07:30 Hgb 15.4 GM/dL (11.7-16.9) 10/07/18 07:30 Hct 48.0 % (35.4-49) 10/07/18 07:30 MCV 94.0 fl (80-96) 10/07/18 07:30 MCH 30.1 pg (25.7-33.7) 10/07/18 07:30 MCHC 32.0 g/dl (32.0-35.9) 10/07/18 07:30 RDW 14.2 % (11.9-15.9) 10/07/18 07:30 Plt Count 165 K/MM3 (134-434) 10/07/18 07:30 MPV 8.2 fl (7.5-11.1) 10/07/18 07:30 Sodium 140 mmol/L (136-145) 10/07/18 07:30 Potassium 3.7 mmol/L (3.5-5.1) 10/07/18 07:30 Chloride 103 mmol/L (98-107) 10/07/18 07:30 Carbon Dioxide 28 mmol/L (21-32) 10/07/18 07:30 Anion Gap 9 MMOL/L (8-16) 10/07/18 07:30 BUN 12 mg/dL (7-18) 10/07/18 07:30 Creatinine 0.8 mg/dL (0.55-1.3) 10/07/18 07:30 Creat Clearance w eGFR > 60 (>60) 10/07/18 07:30 POC Glucometer 214 UNITS (80-120) 10/08/18 06:27 Random Glucose 122 mg/dL (74-106) H 10/07/18 07:30 Calcium 8.3 mg/dL (8.5-10.1) L 10/07/18 07:30 Total Bilirubin 0.6 mg/dL (0.2-1) 10/07/18 07:30 AST 20 U/L (15-37) 10/07/18 07:30 ALT 23 U/L (13-61) 10/07/18 07:30 Alkaline Phosphatase 94 U/L (45-117) 10/07/18 07:30 Total Protein 6.5 g/dl (6.4-8.2) 10/07/18 07:30 Albumin 3.0 g/dl (3.4-5.0) L 10/07/18 07:30 Urine Color Straw 10/06/18 22:30 Urine Appearance Clear 10/06/18 22:30 Urine pH 6.0 (5.0-8.0) 10/06/18 22:30 Ur Specific [place] 1.027 (1.010-1.035) 10/06/18 22:30 Urine Protein Negative (NEGATIVE) 10/06/18 22:30 Urine Glucose (UA) 3+ (NEGATIVE) H 10/06/18 22:30 Urine Ketones Negative (NEGATIVE) 10/06/18 22:30 Urine Blood Negative (NEGATIVE) 10/06/18 22:30 Urine Nitrite Negative (NEGATIVE) 10/06/18 22:30 Urine Bilirubin Negative (<2.0 mg/dL) 10/06/18 22:30 Urine Urobilinogen Negative mg/dL (0.2-1.0) 10/06/18 22:30 Ur Leukocyte Esterase Negative (NEGATIVE) 10/06/18 22:30 RPR Titer Nonreactive (NONREACTIVE) 10/07/18 07:30 lab noted Assessment: 10/08/18 11:09 withdrawal sx Plan: continue detox
[2018-10-08] MEDS: chlordiazePOXIDE 5 MG CAPSULE PO SCH ×2 (17:14→22:02)
[2018-10-08] MEDS: THIAMINE HCL 100 MG TABLET (FP) PO SCH (21:43)
[2018-10-08] MEDS: ATORVASTATIN CA 40 MG TABLET (FP) PO SCH (21:43)
[2018-10-08] MEDS: ACETAMINOPHEN 325 MG TABLET (FP) PO PRN (21:46)
[2018-10-08] MEDS: INSULIN (LEVEMIR) 100 UNITS/ML UNITS SQ SCH (21:47)
[2018-10-09] MEDS: chlordiazePOXIDE 5 MG CAPSULE PO SCH ×2 (05:39→10:18)
[2018-10-09] MEDS: HYDROCHLOROTHIAZIDE 25 MG TABLET (FP) PO SCH (05:40)
[2018-10-09] MEDS: LISINOPRIL 20 MG TABLET (FP) PO SCH (05:40)
[2018-10-09] MEDS: ACETAMINOPHEN 325 MG TABLET (FP) PO PRN (05:47)
[2018-10-09] MEDS: metFORMIN HCL 500 MG TABLET (FP) PO SCH (06:16)
[2018-10-09] MEDS ORDERED: INSULIN SLIDING SCALE (NOVOLOG) 1 VIAL SQ ONE ×2 (06:53→11:15)
[2018-10-09] MEDS: INSULIN (NOVOLOG) ASPART 100 UNITS/ML 10ML VIAL SQ SCH ×2 (07:18→11:18)
[2018-10-09] MEDS: ALBUTEROL SO4 8 GM HFA INHALER IH PRN (08:17)
[2018-10-09] MEDS: CARVEDILOL 6.25 MG TABLET (FP) PO SCH (10:18)
[2018-10-09] MEDS: CLOPIDOGREL BISULFATE 75 MG TABLET (FP) PO SCH (10:18)
[2018-10-09] MEDS: ASPIRIN 81 MG CHEWABLE TABLETS PO SCH (10:18)
[2018-10-09] MEDS: PRENATAL VITAMINS W/ FOLIC ACID TABLET (FP) PO SCH (10:18)
[2018-10-09] MEDS: NICOTINE 21 MG/24 HOURS TOPICAL PATCH TD SCH (10:19)
[2018-10-09] MEDS: NICOTINE POLACRILEX 2 MG GUM BUC PRN (10:20)
[2018-10-09 13:08] VITALS: BP 124/76; PULSE 80; TEMP 98.7
--- NOTE | 2018-10-09 13:10 | PN ---
[facility] Progress Note (SOAP) Subjective: Sweating, nausea (dry heaves), feeling weak, anxious, agitated Objective: 10/09/18 13:02 Last Vital Signs Temp Pulse Resp BP Pulse Ox 96.7 F L 85 18 131/87 10/09/18 09:10 10/09/18 09:10 10/09/18 09:10 10/09/18 09:10 Laboratory Tests 10/06/18 10/06/18 10/06/18 15:56 16:39 22:15 WBC RBC Hgb Hct MCV MCH MCHC RDW Plt Count MPV Sodium Potassium Chloride Carbon Dioxide Anion Gap BUN Creatinine Creat Clearance w eGFR POC Glucometer 207 224 206 Random Glucose Calcium Total Bilirubin AST ALT Alkaline Phosphatase Total Protein Albumin Urine Color Urine Appearance Urine pH Ur Specific [place] Urine Protein Urine Glucose (UA) Urine Ketones Urine Blood Urine Nitrite Urine Bilirubin Urine Urobilinogen Ur Leukocyte Esterase RPR Titer 10/06/18 10/07/18 10/07/18 22:30 07:08 07:30 WBC 5.5 RBC 5.10 Hgb 15.4 Hct 48.0 MCV 94.0 MCH 30.1 MCHC 32.0 RDW 14.2 Plt Count 165 MPV 8.2 Sodium Potassium Chloride Carbon Dioxide Anion Gap BUN Creatinine Creat Clearance w eGFR POC Glucometer 120 Random Glucose Calcium Total Bilirubin AST ALT Alkaline Phosphatase Total Protein Albumin Urine Color Straw Urine Appearance Clear Urine pH 6.0 Ur Specific [place] 1.027 Urine Protein Negative Urine Glucose (UA) 3+ H Urine Ketones Negative Urine Blood Negative Urine Nitrite Negative Urine Bilirubin Negative Urine Urobilinogen Negative Ur Leukocyte Esterase Negative RPR Titer 10/07/18 10/07/18 10/07/18 07:30 07:30 16:14 WBC RBC Hgb Hct MCV MCH MCHC RDW Plt Count MPV Sodium 140 Potassium 3.7 Chloride 103 Carbon Dioxide 28 Anion Gap 9 BUN 12 Creatinine 0.8 Creat Clearance w eGFR > 60 POC Glucometer 249 Random Glucose 122 H Calcium 8.3 L Total Bilirubin 0.6 AST 20 ALT 23 Alkaline Phosphatase 94 Total Protein 6.5 Albumin 3.0 L Urine Color Urine Appearance Urine pH Ur Specific [place] Urine Protein Urine Glucose (UA) Urine Ketones Urine Blood Urine Nitrite Urine Bilirubin Urine Urobilinogen Ur Leukocyte Esterase RPR Titer Nonreactive 10/07/18 10/08/18 10/08/18 20:47 06:27 11:19 WBC RBC Hgb Hct MCV MCH MCHC RDW Plt Count MPV Sodium Potassium Chloride Carbon Dioxide Anion Gap BUN Creatinine Creat Clearance w eGFR POC Glucometer 536 214 251 Random Glucose Calcium Total Bilirubin AST ALT Alkaline Phosphatase Total Protein Albumin Urine Color Urine Appearance Urine pH Ur Specific [place] Urine Protein Urine Glucose (UA) Urine Ketones Urine Blood Urine Nitrite Urine Bilirubin Urine Urobilinogen Ur Leukocyte Esterase RPR Titer 10/08/18 10/08/18 10/09/18 16:49 21:11 05:39 WBC RBC Hgb Hct MCV MCH MCHC RDW Plt Count MPV Sodium Potassium Chloride Carbon Dioxide Anion Gap BUN Creatinine Creat Clearance w eGFR POC Glucometer 219 272 266 Random Glucose Calcium Total Bilirubin AST ALT Alkaline Phosphatase Total Protein Albumin Urine Color Urine Appearance Urine pH Ur Specific [place] Urine Protein Urine Glucose (UA) Urine Ketones Urine Blood Urine Nitrite Urine Bilirubin Urine Urobilinogen Ur Leukocyte Esterase RPR Titer 10/09/18 11:10 WBC RBC Hgb Hct MCV MCH MCHC RDW Plt Count MPV Sodium Potassium Chloride Carbon Dioxide Anion Gap BUN Creatinine Creat Clearance w eGFR POC Glucometer 390 Random Glucose Calcium Total Bilirubin AST ALT Alkaline Phosphatase Total Protein Albumin Urine Color Urine Appearance Urine pH Ur Specific [place] Urine Protein Urine Glucose (UA) Urine Ketones Urine Blood Urine Nitrite Urine Bilirubin Urine Urobilinogen Ur Leukocyte Esterase RPR Titer Labs reviewed Assessment: 10/09/18 13:10 Withdrawal symptoms Plan: Continue detox Encouraged PO water intake for hydration DMT2 with hyperglycemia, uncontrolled: change sliding scale insulin novolog coverage (see order), increased levemir to 20 unit sq qhs, continue metformin 1g PO bid, encourage adherence to diabetic diet, continue to monitor
[2018-10-09] MEDS ORDERED: INSULIN SLIDING SCALE (NOVOLOG) 1 VIAL SQ SCH (16:30)
--- NOTE | 2018-10-09 16:38 | DS ---
[facility] Detox Discharge Summary Admission Date: 10/06/18 Discharge Date: 10/09/18 - History Present History: Alcohol Dependence Additional Comments: Client discharged in stable condition into the community. Medication refills sent to the pharmacy. Pertinent Past History: Laboratory Last Values - Physical Exam Results Vital Signs: Vital Signs Temperature 98.7 F 10/09/18 13:06 Pulse Rate 80 10/09/18 13:06 Respiratory Rate 18 10/09/18 13:06 Blood Pressure 124/76 10/09/18 13:06 O2 Sat by Pulse Oximetry (%) Pertinent Admission Physical Exam Findings: Laboratory Last Values WBC 5.5 K/mm3 (4.0-10.0) 10/07/18 07:30 RBC 5.10 M/mm3 (4.00-5.60) 10/07/18 07:30 Hgb 15.4 GM/dL (11.7-16.9) 10/07/18 07:30 Hct 48.0 % (35.4-49) 10/07/18 07:30 MCV 94.0 fl (80-96) 10/07/18 07:30 MCH 30.1 pg (25.7-33.7) 10/07/18 07:30 MCHC 32.0 g/dl (32.0-35.9) 10/07/18 07:30 RDW 14.2 % (11.9-15.9) 10/07/18 07:30 Plt Count 165 K/MM3 (134-434) 10/07/18 07:30 MPV 8.2 fl (7.5-11.1) 10/07/18 07:30 Sodium 140 mmol/L (136-145) 10/07/18 07:30 Potassium 3.7 mmol/L (3.5-5.1) 10/07/18 07:30 Chloride 103 mmol/L (98-107) 10/07/18 07:30 Carbon Dioxide 28 mmol/L (21-32) 10/07/18 07:30 Anion Gap 9 MMOL/L (8-16) 10/07/18 07:30 BUN 12 mg/dL (7-18) 10/07/18 07:30 Creatinine 0.8 mg/dL (0.55-1.3) 10/07/18 07:30 Creat Clearance w eGFR > 60 (>60) 10/07/18 07:30 POC Glucometer 390 UNITS (80-120) 10/09/18 11:10 Random Glucose 122 mg/dL (74-106) H 10/07/18 07:30 Calcium 8.3 mg/dL (8.5-10.1) L 10/07/18 07:30 Total Bilirubin 0.6 mg/dL (0.2-1) 10/07/18 07:30 AST 20 U/L (15-37) 10/07/18 07:30 ALT 23 U/L (13-61) 10/07/18 07:30 Alkaline Phosphatase 94 U/L (45-117) 10/07/18 07:30 Total Protein 6.5 g/dl (6.4-8.2) 10/07/18 07:30 Albumin 3.0 g/dl (3.4-5.0) L 10/07/18 07:30 Urine Color Straw 10/06/18 22:30 Urine Appearance Clear 10/06/18 22:30 Urine pH 6.0 (5.0-8.0) 10/06/18 22:30 Ur Specific [place] 1.027 (1.010-1.035) 10/06/18 22:30 Urine Protein Negative (NEGATIVE) 10/06/18 22:30 Urine Glucose (UA) 3+ (NEGATIVE) H 10/06/18 22:30 Urine Ketones Negative (NEGATIVE) 10/06/18 22:30 Urine Blood Negative (NEGATIVE) 10/06/18 22:30 Urine Nitrite Negative (NEGATIVE) 10/06/18 22:30 Urine Bilirubin Negative (<2.0 mg/dL) 10/06/18 22:30 Urine Urobilinogen Negative mg/dL (0.2-1.0) 10/06/18 22:30 Ur Leukocyte Esterase Negative (NEGATIVE) 10/06/18 22:30 RPR Titer Nonreactive (NONREACTIVE) 10/07/18 07:30 labs noted - Treatment Hospital Course: Detox Protocol Followed, Detoxed Safely, Responded well, Discharged Condition Good - Medication Discharge Medications: Ambulatory Orders Insulin Glargine,Hum.rec.anlog [Lantus] 15 unit SQ HS 10/06/18 Albuterol Sulfate Inhaler - [Ventolin HFA Inhaler -] 2 inh PO Q6H PRN #1 inhaler 10/09/18 Aspirin [ASA -] 81 mg PO DAILY #14 tab.chew 10/09/18 Atorvastatin Ca [Lipitor] 40 mg PO HS #14 tablet 10/09/18 Carvedilol [Coreg -] 6.25 mg PO BID #28 tablet 10/09/18 Clopidogrel Bisulfate [Plavix -] 75 mg PO DAILY #14 tablet 10/09/18 Lisinopril [Prinivil -] 40 mg PO DAILY #14 tablet 10/09/18 Metformin HCl [Glucophage] 1,000 mg PO BID #28 tablet 10/09/18 - Diagnosis (1) Alcohol dependence with uncomplicated withdrawal Current Visit: Yes Status: Chronic (2) COPD (chronic obstructive pulmonary disease) Current Visit: Yes Status: Acute (3) Hypercholesterolemia Current Visit: Yes Status: Chronic (4) IDDM (insulin dependent diabetes mellitus) Current Visit: Yes Status: Chronic (5) COPD (chronic obstructive pulmonary disease) Current Visit: Yes Status: Chronic Qualifiers: COPD type: unspecified COPD Qualified Code(s): J44.9 - Chronic obstructive pulmonary disease, unspecified (6) HTN (hypertension) Current Visit: Yes Status: Chronic Qualifiers: Hypertension type: essential hypertension Qualified Code(s): I10 - Essential (primary) hypertension - AMA Did Patient Leave Against Medical Advice: No
[2018-10-09] MEDS ORDERED: chlordiazePOXIDE HCL 10 MG CAPSULE PO SCH (17:00)
[2018-10-09] MEDS ORDERED: INSULIN (LEVEMIR) 100 UNITS/ML UNITS SQ SCH (22:00)
== END 2018-10-09 17:00 | disposition home or self-care (01) | DRG 897 ==
LOC: YASAS 10:39 → Y3N 16:01
PROVIDERS: ADMIT Neuromusculoskeletal Medicine & OMM; ATTEND Neuromusculoskeletal Medicine & OMM
PROC: HZ2ZZZZ Detoxification Services for Substance Abuse Treatment (ICD-10-PCS; principal; 2018-10-06)
DX: F10.230 Alcohol dependence with withdrawal, uncomplicated (principal); F17.210 Nicotine dependence, cigarettes, uncomplicated; F39 Unspecified mood [affective] disorder; I10 Essential (primary) hypertension; E78.00 Pure hypercholesterolemia, unspecified; E11.65 Type 2 diabetes mellitus with hyperglycemia; J44.9 Chronic obstructive pulmonary disease, unspecified; I25.2 Old myocardial infarction; R81 Glycosuria; Z95.5 Presence of coronary angioplasty implant and graft; Z79.4 Long term (current) use of insulin
CPT/HCPCS: 36415; 80053; 81003; 82962; 85027; 86593; 93005; 93010

== ENCOUNTER 2019-04-01 10:46 | Inpatient (IN) | payer OTHER ==
[2019-04-01 13:14] VITALS: BMI 28.3
--- NOTE | 2019-04-01 13:55 | HP ---
CIWA Score Nausea/Vomitin Muscle Tremors: 2 Anxiety: 2 Agitation: 2 Paroxysmal Sweats: 1-Minimal Palms Moist Orientation: 0-Oriented Tacttile Disturbances: 1-Very Mild Itch/Numbness Auditory Disturbances: 1-Very Mild Visual Disturbances: 0-None Headache: 2-Mild CIWA-Ar Total Score: 13 - Admission Criteria OASAS Guidelines: Admission for Medically Managed Detox: Requires at least one of the followin. CIWA greater than 12 2. Seizures within the past 24 hours 3. Delirium tremens within the past 24 hours 4. Hallucinations within the past 24 hours 5. Acute intervention needed for co occurring medical disorder 6. Acute intervention needed for co occurring psychiatric disorder 7. Severe withdrawal that cannot be handled at a lower level of care (continued vomiting, continued diarrhea, abnormal vital signs) requiring intravenous medication and/or fluids 8. Admission ROS BHS - HPI Chief Complaint: i need help to stop drinking alcohol Allergies/Adverse Reactions: Allergies Allergy/AdvReac Type Severity Reaction Status Date / Time quetiapine [From Seroquel] Allergy Severe Verified 10/06/18 15:39 nitroglycerin AdvReac Severe Verified 04/01/19 13:03 History of Present Illness: this 53 years old male with alcohol dependence,seeking detox,withdrawal symptom multiple admissions in detox but keep relapsing syncope alcohol related hepatitis c treated nicotine dependence 1 pack /day requesting nicotine patch longest sobriety 1 year plan for rehab after detox - Ebola screening Have you traveled outside of the country in the last 21 days: No (N) Have you had contact with anyone from an Ebola affected area: No Do you have a fever: No - Review of Systems Constitutional: Loss of Appetite, Malaise, Night Sweats, Changes in sleep, Weakness, Unintentional Wgt. Loss EENT: reports: Nose Congestion Respiratory: reports: No Symptoms reported Cardiac: reports: No Symptoms Reported GI: reports: Nausea, Poor Appetite, Vomiting, Abdominal cramping Musculoskeletal: reports: Back Pain, Muscle Pain Integumentary: reports: Dryness Neuro: reports: Headache, Tremors Endocrine: reports: No Symptoms Reported Hematology: reports: No Symptoms Reported Psychiatric: reports: No Sypmtoms Reported, Judgement Intact, Mood/Affect Appropiate, Orientated x3 Other Systems: Reviewed and Negative Patient History - Patient Medical History Hx Asthma: No Hx Chronic Obstructive Pulmonary Disease (COPD): Yes (on albuterol inhaler, spiriva) Hx Cancer: No Hx Cardiac Disorders: Yes (open herat surgery in 12/01 5 by pass) Hx Congestive Heart Failure: No Hx Hypertension: No Hx Hypercholesterolemia: No Hx Pacemaker: No HX Cerebrovascular Accident: No Hx Seizures: No Hx Dementia: No Hx Diabetes: Yes (iddm ) Hx Gastrointestinal Disorders: No Hx Liver Disease: No Hx Genitourinary Disorders: No Hx Sexually Transmitted Disorders: No Hx Renal Disease (ESRD): No Hx Thyroid Disease: No Hx Human Immunodeficiency Virus (HIV): No (last -03/30 negative) Hx Hepatitis C: No Hx Depression: Yes Hx Suicide Attempt: No Hx Bipolar Disorder: No Hx Schizophrenia: No Other Medical History: no suicidal,no homicidal, - Patient Surgical History Past Surgical History: No Hx Neurologic Surgery: No Hx Cataract Extraction: No Hx Cardiac Surgery: Yes (open heart sugry,5 vessels in 12/01 [place]) Hx Lung Surgery: No Hx Breast Surgery: No Hx Breast Biopsy: No Hx Abdominal Surgery: No Hx Appendectomy: No Hx Cholecystectomy: No Hx Genitourinary Surgery: No Hx Section: No Hx Orthopedic Surgery: No Hx Hysterectomy: No Anesthesia Reaction: No - PPD History Previous Implant?: Yes Documented Results: Negative w/o proof Implanted On Prior R Admission?: Yes Date: 09/05/18 Results: no reading PPD to be Administered?: Yes - Smoking Cessation Smoking history: Current every day smoker Have you smoked in the past 12 months: No Aproximately how many cigarettes per day: 10 Cigars Per Day: 0 Hx Chewing Tobacco Use: No Initiated information on smoking cessation: Yes 'Breaking Loose' booklet given: 04/01/19 - Substance & Tx. History Hx Alcohol Use: Yes Hx Substance Use: No Substance Use Type: Alcohol Hx Substance Use Treatment: Yes ([facility] 10/06/18 to 10/09/18) - Substances abused Alcohol Substance route: Oral Frequency: Daily Amount used: 4-5 1/2 pint of vodka, 2 six pack beers of 12 ozs Age of first use: 15 Date of last use: 04/01/19 Family Disease History - Family Disease History Family Disease History: Diabetes: Father (), Mother (), Heart Disease: Father, Mother Admission Physical Exam BHS - Vital Signs Vital Signs: Vital Signs - 24 hr 04/01/19 13:10 Temperature 98.3 F Pulse Rate 90 Respiratory 19 Rate Blood Pressure 157/97 - Physical General Appearance: Yes: Moderate Distress, Tremorous, Irritable, Sweating, Anxious HEENTM: Yes: Normal ENT Inspection, RON, Pharynx Normal Respiratory: Yes: Lungs Clear, Normal Breath Sounds, No Respiratory Distress Neck: Yes: Within Normal Limits, Supple, Trachea in good position Breast: Yes: Within Normal Limits Cardiology: Yes: Within Normal Limits, Regular Rhythm, Regular Rate, S1, S2, Surgical Scar (s/p [place] 5 vessels in 12/01) Abdominal: Yes: Within Normal Limits, Normal Bowel Sounds, Non Tender, Flat, Soft Genitourinary: Yes: Within Normal Limits Back: Yes: Muscle Spasm Musculoskeletal: Yes: Within Normal Limits, Muscle Pain Extremities: Yes: Within Normal Limits, Normal Range of Motion, Tremors Neurological: Yes: camera operator II-XII NML intact, Fully Oriented, Alert, Motor Strength 5/5 Integumentary: Yes: Dry Lymphatic: Yes: Within Normal Limits - Diagnostic (1) Alcohol dependence with uncomplicated withdrawal Current Visit: No Status: Chronic (2) History of coronary artery bypass, five Current Visit: Yes Status: Acute (3) H/O heart artery stent Current Visit: No Status: Chronic (4) IDDM (insulin dependent diabetes mellitus) Current Visit: Yes Status: Acute (5) Nicotine dependence Current Visit: Yes Status: Acute Cleared for Admission S - Detox or Rehab [facility] Level of Care: Medically Managed Detox Regimen/Protocol: Valium Inpatient Rehab Admission - Rehab Decision to Admit Inpatient rehab admission?: No
[2019-04-01] MEDS ORDERED: MENTHOL/PHENOL 1 EACH UD MM PRN (14:13)
[2019-04-01] MEDS ORDERED: MAG HYDROX/AL HYDROX/SIMETH 30 ML UNIT-DOSE CUP PO PRN (14:13)
[2019-04-01] MEDS ORDERED: BISMUTH SUBSALICYLATE 262 MG/15 ML BTL PO PRN (14:13)
[2019-04-01] MEDS ORDERED: IBUPROFEN 400 MG TABLET (FP) PO PRN (14:13)
[2019-04-01] MEDS ORDERED: ACETAMINOPHEN 325 MG TABLET (FP) PO PRN ×2 (14:13)
[2019-04-01] MEDS ORDERED: hydrOXYzine PAMOATE 25 MG CAPSULE (FP) PO PRN (14:13)
[2019-04-01] MEDS ORDERED: MAGNESIUM HYDROX 2400MG/30ML ORAL SUSPENSION 30 ML CUP PO PRN (14:13)
[2019-04-01] MEDS ORDERED: MELATONIN 5 MG TABLETS PO PRN (14:13)
[2019-04-01] MEDS ORDERED: MAGNESIUM CITRATE 300 ML BOTTLE PO PRN (14:13)
[2019-04-01] MEDS ORDERED: ALBUTEROL SO4 8 GM HFA INHALER IH PRN (14:19)
[2019-04-01] MEDS: diazePAM 5 MG TABLET PO PRN (15:27)
[2019-04-01] MEDS: NICOTINE 21 MG/24 HOURS TOPICAL PATCH TD SCH (15:30)
[2019-04-01] MEDS: metFORMIN HCL 500 MG TABLET (FP) PO SCH (17:24)
[2019-04-01] MEDS: INSULIN (NOVOLOG) ASPART 100 UNITS/ML 10ML VIAL SQ SCH ×2 (17:25→22:28)
[2019-04-01 18:13] LABS: EPI CELLS 1.2 /HPF (0-5/HPF); HYALINE CASTS 0 /lpf (0-8); PH,URINE 5.5 (5.0-8.0); URINE APPEARANCE CLEAR; URINE BACTERIA 0.2 /hpf (NEGATIVE); URINE BILIRUBIN NEGATIVE (NEGATIVE); URINE COLOR YELLOW; URINE GLUCOSE (UA) 3+ (NEGATIVE); URINE KETONE NEGATIVE (NEGATIVE); URINE LEUK ESTERASE NEGATIVE (NEGATIVE); URINE NITRITE NEGATIVE (NEGATIVE); URINE PROTEIN 1+ (NEGATIVE); URINE RBC 1 /hpf (0-4); URINE WBC 2 /hpf (0-5)
[2019-04-01 18:44] LABS: URINE CRYSTALS CALCIUM OXALATES /hpf
[2019-04-01] MEDS ORDERED: cloNIDine HCL 0.1 MG TABLET PO ONE (22:00)
--- NOTE | 2019-04-01 22:01 | PN ---
S Progress Note Note: Patient's blood pressure is B/P 118/114. Patient is asymptomatic Vital Signs 04/01/19 04/01/19 04/01/19 15:12 15:40 17:58 Temperature 98.5 F 97.9 F 97.2 F L Pulse Rate 90 85 97 H Respiratory 19 18 18 Rate Blood Pressure 157/97 155/94 138/83 04/01/19 04/01/19 22:00 22:16 Temperature 97.9 F 97.9 F Pulse Rate 90 90 Respiratory 18 18 Rate Blood Pressure 188/114 H 118/114 H Action: Clonidine 0.1mg tablet 1 tablet oral ordered
[2019-04-01] MEDS: INSULIN (LEVEMIR) 100 UNITS/ML UNITS SQ SCH (22:24)
[2019-04-01] MEDS: ATORVASTATIN CA 40 MG TABLET (FP) PO SCH (22:24)
[2019-04-01] MEDS: CARVEDILOL 6.25 MG TABLET (FP) PO SCH (22:24)
[2019-04-01] MEDS: THIAMINE HCL 100 MG TABLET (FP) PO SCH (22:24)
[2019-04-01] MEDS: diazePAM 5 MG TABLET PO SCH (22:28)
[2019-04-02] MEDS: diazePAM 5 MG TABLET PO SCH ×3 (06:11→21:41)
[2019-04-02] MEDS: metFORMIN HCL 500 MG TABLET (FP) PO SCH ×2 (06:11→16:52)
[2019-04-02] MEDS: INSULIN (NOVOLOG) ASPART 100 UNITS/ML 10ML VIAL SQ SCH ×4 (06:40→21:43)
[2019-04-02 10:06] LABS: HEMATOCRIT 43.7 % (35.4-49); HEMOGLOBIN 14.2 GM/dL (11.7-16.9); MCH 29.9 pg (25.7-33.7); MCHC 32.5 g/dl (32.0-35.9); MEAN PLT VOLUME 8.7 fl (7.5-11.1); PLATELET COUNT 189 K/MM3 (134-434); RBC 4.75 M/mm3 (4.00-5.60); RDW 16.7 % (11.9-15.9); WHITE BLOOD COUNT 5.4 K/mm3 (4.0-10.0)
[2019-04-02] MEDS: LISINOPRIL 20 MG TABLET (FP) PO SCH (10:14)
[2019-04-02] MEDS: CARVEDILOL 6.25 MG TABLET (FP) PO SCH (10:15)
[2019-04-02] MEDS: PRENATAL VITAMINS W/ FOLIC ACID TABLET (FP) PO SCH (10:15)
[2019-04-02] MEDS: ASPIRIN 81 MG CHEWABLE TABLETS PO SCH (10:15)
[2019-04-02] MEDS: CLOPIDOGREL BISULFATE 75 MG TABLET (FP) PO SCH (10:15)
[2019-04-02] MEDS: NICOTINE 21 MG/24 HOURS TOPICAL PATCH TD SCH (10:15)
[2019-04-02] MEDS: diazePAM 5 MG TABLET PO PRN (10:16)
[2019-04-02] MEDS: METHOCARBAMOL 500 MG TABLET PO PRN ×2 (10:16→19:42)
[2019-04-02 10:46] LABS: BILIRUBIN,TOTAL 0.4 mg/dL (0.2-1); CALCIUM 9.6 mg/dL (8.5-10.1); POTASSIUM 3.8 mmol/L (3.5-5.1); TOT PROT 7.6 g/dl (6.4-8.2)
--- NOTE | 2019-04-02 11:52 | PN ---
[facility] CIWA - CIWA Score Nausea/Vomitin-Mild Nausea/No Vomiting Muscle Tremors: 2 Anxiety: 3 Agitation: 3 Paroxysmal Sweats: 1-Minimal Palms Moist Orientation: 0-Oriented Tacttile Disturbances: 0-None Auditory Disturbances: 0-None Visual Disturbances: 0-None Headache: 2-Mild CIWA-Ar Total Score: 12 S Progress Note (SOAP) Subjective: doing well with valium detox regimen long history of hypertension and diabetes discuss risks of bp elevation and complications if glycemia elevation Objective: 04/02/19 12:10 Vital Signs Temperature 96.1 F L 04/02/19 09:06 Pulse Rate 86 04/02/19 09:06 Respiratory Rate 18 04/02/19 09:06 Blood Pressure 184/102 H 04/02/19 09:06 O2 Sat by Pulse Oximetry (%) Laboratory Last Values WBC 5.4 K/mm3 (4.0-10.0) 04/02/19 06:00 RBC 4.75 M/mm3 (4.00-5.60) 04/02/19 06:00 Hgb 14.2 GM/dL (11.7-16.9) 04/02/19 06:00 Hct 43.7 % (35.4-49) 04/02/19 06:00 MCV 92.0 fl (80-96) 04/02/19 06:00 MCH 29.9 pg (25.7-33.7) 04/02/19 06:00 MCHC 32.5 g/dl (32.0-35.9) 04/02/19 06:00 RDW 16.7 % (11.9-15.9) H 04/02/19 06:00 Plt Count 189 K/MM3 (134-434) 04/02/19 06:00 MPV 8.7 fl (7.5-11.1) 04/02/19 06:00 Sodium 138 mmol/L (136-145) 04/02/19 06:00 Potassium 3.8 mmol/L (3.5-5.1) 04/02/19 06:00 Chloride 106 mmol/L (98-107) 04/02/19 06:00 Carbon Dioxide 24 mmol/L (21-32) 04/02/19 06:00 Anion Gap 8 MMOL/L (8-16) 04/02/19 06:00 BUN 11 mg/dL (7-18) 04/02/19 06:00 Creatinine 1.0 mg/dL (0.55-1.3) 04/02/19 06:00 Est GFR (CKD-EPI)AfAm 100.55 04/02/19 06:00 Est GFR (CKD-EPI)NonAf 86.76 04/02/19 06:00 POC Glucometer 230 UNITS (80-120) 04/02/19 11:59 Random Glucose 315 mg/dL (74-106) H* 04/02/19 06:00 Calcium 9.6 mg/dL (8.5-10.1) 04/02/19 06:00 Total Bilirubin 0.4 mg/dL (0.2-1) 04/02/19 06:00 AST 16 U/L (15-37) 04/02/19 06:00 ALT 19 U/L (13-61) 04/02/19 06:00 Alkaline Phosphatase 108 U/L (45-117) 04/02/19 06:00 Total Protein 7.6 g/dl (6.4-8.2) 04/02/19 06:00 Albumin 4.0 g/dl (3.4-5.0) 04/02/19 06:00 Urine Color Yellow 04/01/19 15:28 Urine Appearance Clear 04/01/19 15:28 Urine pH 5.5 (5.0-8.0) 04/01/19 15:28 Ur Specific [place] 1.043 (1.010-1.035) H 04/01/19 15:28 Urine Protein 1+ (NEGATIVE) H 04/01/19 15:28 Urine Glucose (UA) 3+ (NEGATIVE) H 04/01/19 15:28 Urine Ketones Negative (NEGATIVE) 04/01/19 15:28 Urine Blood Negative (NEGATIVE) 04/01/19 15:28 Urine Nitrite Negative (NEGATIVE) 04/01/19 15:28 Urine Bilirubin Negative (NEGATIVE) 04/01/19 15:28 Urine Urobilinogen 1.0 mg/dL (0.2-1.0) 04/01/19 15:28 Ur Leukocyte Esterase Negative (NEGATIVE) 04/01/19 15:28 Urine WBC (Auto) 2 /hpf (0-5) 05/20/19 15:28 Urine RBC (Auto) 1 /hpf (0-4) 04/01/19 15:28 Urine Casts (Auto) 0 /lpf (0-8) 04/01/19 15:28 U Epithel Cells (Auto) 1.2 /HPF (0-5/HPF) 04/01/19 15:28 Urine Crystals (Auto) Calcium oxalates /hpf 04/01/19 15:28 Urine Bacteria (Auto) 0.2 /hpf (NEGATIVE) 04/01/19 15:28 RPR Titer Nonreactive (NONREACTIVE) 04/02/19 06:00 lab noted Assessment: 04/02/19 12:10 alcohol withdrawal sx hypertension diabetes II Plan: continue detox
[2019-04-02] MEDS ORDERED: INSULIN SLIDING SCALE (NOVOLOG) 1 VIAL SQ ONE ×3 (12:08→22:16)
[2019-04-02] MEDS ORDERED: METOPROLOL TARTRATE 50 MG TABLET (FP) PO PRN (12:12)
[2019-04-02] MEDS ORDERED: CARVEDILOL 6.25 MG TABLET (FP) PO ONE (12:34)
[2019-04-02] MEDS ORDERED: HYDROCHLOROTHIAZIDE 25 MG TABLET (FP) PO ONE (20:39)
[2019-04-02] MEDS: INSULIN (LEVEMIR) 100 UNITS/ML UNITS SQ SCH (21:41)
[2019-04-02] MEDS: THIAMINE HCL 100 MG TABLET (FP) PO SCH (21:41)
[2019-04-02] MEDS: ATORVASTATIN CA 40 MG TABLET (FP) PO SCH (21:41)
[2019-04-02] MEDS ORDERED: CARVEDILOL 6.25 MG TABLET (FP) PO SCH (22:00)
[2019-04-03] MEDS: diazePAM 5 MG TABLET PO PRN (03:09)
[2019-04-03] MEDS: metFORMIN HCL 500 MG TABLET (FP) PO SCH (06:38)
[2019-04-03] MEDS: INSULIN (NOVOLOG) ASPART 100 UNITS/ML 10ML VIAL SQ SCH ×3 (06:40→11:14)
[2019-04-03] MEDS ORDERED: INSULIN SLIDING SCALE (NOVOLOG) 1 VIAL SQ ONE ×2 (07:58→11:15)
[2019-04-03] MEDS ORDERED: CARVEDILOL 12.5 MG TABLET (FP) PO SCH (10:00)
[2019-04-03] MEDS ORDERED: diazePAM 5 MG TABLET PO SCH (10:00)
[2019-04-03] MEDS: ASPIRIN 81 MG CHEWABLE TABLETS PO SCH (10:21)
[2019-04-03] MEDS: NICOTINE 21 MG/24 HOURS TOPICAL PATCH TD SCH (10:21)
[2019-04-03] MEDS: PRENATAL VITAMINS W/ FOLIC ACID TABLET (FP) PO SCH (10:22)
[2019-04-03] MEDS: CLOPIDOGREL BISULFATE 75 MG TABLET (FP) PO SCH (10:22)
[2019-04-03] MEDS: LISINOPRIL 20 MG TABLET (FP) PO SCH (10:22)
[2019-04-03] MEDS: METHOCARBAMOL 500 MG TABLET PO PRN (10:29)
--- NOTE | 2019-04-03 12:29 | PN ---
S CIWA - CIWA Score Nausea/Vomitin-Mild Nausea/No Vomiting Muscle Tremors: 2 Anxiety: 2 Agitation: 2 Paroxysmal Sweats: No Perspiration Orientation: 0-Oriented Tacttile Disturbances: 0-None Auditory Disturbances: 0-None Visual Disturbances: 0-None Headache: 0-None Present CIWA-Ar Total Score: 7 BHS Progress Note (SOAP) Subjective: less alcohol withdrawal today feeling better discuss aftercare with staff patient wants to go [facility] Objective: 04/03/19 12:28 Vital Signs Temperature 97.1 F L 04/03/19 09:16 Pulse Rate 94 H 04/03/19 09:16 Respiratory Rate 18 04/03/19 09:16 Blood Pressure 156/104 H 04/03/19 09:16 O2 Sat by Pulse Oximetry (%) Laboratory Last Values WBC 5.4 K/mm3 (4.0-10.0) 04/02/19 06:00 RBC 4.75 M/mm3 (4.00-5.60) 04/02/19 06:00 Hgb 14.2 GM/dL (11.7-16.9) 04/02/19 06:00 Hct 43.7 % (35.4-49) 04/02/19 06:00 MCV 92.0 fl (80-96) 04/02/19 06:00 MCH 29.9 pg (25.7-33.7) 04/02/19 06:00 MCHC 32.5 g/dl (32.0-35.9) 04/02/19 06:00 RDW 16.7 % (11.9-15.9) H 04/02/19 06:00 Plt Count 189 K/MM3 (134-434) 04/02/19 06:00 MPV 8.7 fl (7.5-11.1) 04/02/19 06:00 Sodium 138 mmol/L (136-145) 04/02/19 06:00 Potassium 3.8 mmol/L (3.5-5.1) 04/02/19 06:00 Chloride 106 mmol/L (98-107) 04/02/19 06:00 Carbon Dioxide 24 mmol/L (21-32) 04/02/19 06:00 Anion Gap 8 MMOL/L (8-16) 04/02/19 06:00 BUN 11 mg/dL (7-18) 04/02/19 06:00 Creatinine 1.0 mg/dL (0.55-1.3) 04/02/19 06:00 Est GFR (CKD-EPI)AfAm 100.55 04/02/19 06:00 Est GFR (CKD-EPI)NonAf 86.76 04/02/19 06:00 POC Glucometer 229 UNITS (80-120) 04/03/19 11:10 Random Glucose 315 mg/dL (74-106) H* 04/02/19 06:00 Calcium 9.6 mg/dL (8.5-10.1) 04/02/19 06:00 Total Bilirubin 0.4 mg/dL (0.2-1) 04/02/19 06:00 AST 16 U/L (15-37) 04/02/19 06:00 ALT 19 U/L (13-61) 04/02/19 06:00 Alkaline Phosphatase 108 U/L (45-117) 04/02/19 06:00 Total Protein 7.6 g/dl (6.4-8.2) 04/02/19 06:00 Albumin 4.0 g/dl (3.4-5.0) 04/02/19 06:00 Urine Color Yellow 04/01/19 15:28 Urine Appearance Clear 04/01/19 15:28 Urine pH 5.5 (5.0-8.0) 04/01/19 15:28 Ur Specific [place] 1.043 (1.010-1.035) H 04/01/19 15:28 Urine Protein 1+ (NEGATIVE) H 04/01/19 15:28 Urine Glucose (UA) 3+ (NEGATIVE) H 04/01/19 15:28 Urine Ketones Negative (NEGATIVE) 04/01/19 15:28 Urine Blood Negative (NEGATIVE) 04/01/19 15:28 Urine Nitrite Negative (NEGATIVE) 04/01/19 15:28 Urine Bilirubin Negative (NEGATIVE) 04/01/19 15:28 Urine Urobilinogen 1.0 mg/dL (0.2-1.0) 04/01/19 15:28 Ur Leukocyte Esterase Negative (NEGATIVE) 04/01/19 15:28 Urine WBC (Auto) 2 /hpf (0-5) 04/01/19 15:28 Urine RBC (Auto) 1 /hpf (0-4) 04/01/19 15:28 Urine Casts (Auto) 0 /lpf (0-8) 04/01/19 15:28 U Epithel Cells (Auto) 1.2 /HPF (0-5/HPF) 04/01/19 15:28 Urine Crystals (Auto) Calcium oxalates /hpf 04/01/19 15:28 Urine Bacteria (Auto) 0.2 /hpf (NEGATIVE) 04/01/19 15:28 RPR Titer Nonreactive (NONREACTIVE) 04/02/19 06:00 lab noted hypertension diabetes Assessment: 04/03/19 12:29 alcohol withdrawal sx Plan: continue detox
[2019-04-03 14:15] VITALS: BP 131/94; PULSE 89; TEMP 97.3
--- NOTE | 2019-04-03 15:04 | DS ---
[facility] Detox Discharge Summary Admission Date: 04/01/19 Discharge Date: 04/03/19 - History Present History: Alcohol Dependence Additional Comments: 53 years old male admitted on 04/01/19 for alcohol withdrawal stabilization feeling better after lunch and napping preferring to go to alcohol rehab today alert no acute distress denies suicidal ideation aftercare as per counselor arrangement Pertinent Past History: bring in medication list and lab report to aftercare appointment - Physical Exam Results Vital Signs: Vital Signs Temperature 97.3 F L 04/03/19 14:13 Pulse Rate 89 04/03/19 14:13 Respiratory Rate 04/03/19 14:13 Blood Pressure 131/94 04/03/19 14:13 O2 Sat by Pulse Oximetry (%) Pertinent Admission Physical Exam Findings: alcohol withdrawal sx Vital Signs Temperature 97.3 F L 04/03/19 14:13 Pulse Rate 89 04/03/19 14:13 Respiratory Rate 04/03/19 14:13 Blood Pressure 131/94 04/03/19 14:13 O2 Sat by Pulse Oximetry (%) Laboratory Last Values WBC 5.4 K/mm3 (4.0-10.0) 04/02/19 06:00 RBC 4.75 M/mm3 (4.00-5.60) 04/02/19 06:00 Hgb 14.2 GM/dL (11.7-16.9) 04/02/19 06:00 Hct 43.7 % (35.4-49) 04/02/19 06:00 MCV 92.0 fl (80-96) 04/02/19 06:00 MCH 29.9 pg (25.7-33.7) 04/02/19 06:00 MCHC 32.5 g/dl (32.0-35.9) 04/02/19 06:00 RDW 16.7 % (11.9-15.9) H 04/02/19 06:00 Plt Count 189 K/MM3 (134-434) 04/02/19 06:00 MPV 8.7 fl (7.5-11.1) 04/02/19 06:00 Sodium 138 mmol/L (136-145) 04/02/19 06:00 Potassium 3.8 mmol/L (3.5-5.1) 04/02/19 06:00 Chloride 106 mmol/L (98-107) 04/02/19 06:00 Carbon Dioxide 24 mmol/L (21-32) 04/02/19 06:00 Anion Gap 8 MMOL/L (8-16) 04/02/19 06:00 BUN 11 mg/dL (7-18) 04/02/19 06:00 Creatinine 1.0 mg/dL (0.55-1.3) 04/02/19 06:00 Est GFR (CKD-EPI)AfAm 100.55 04/02/19 06:00 Est GFR (CKD-EPI)NonAf 86.76 04/02/19 06:00 POC Glucometer 229 UNITS (80-120) 04/03/19 11:10 Random Glucose 315 mg/dL (74-106) H* 04/02/19 06:00 Calcium 9.6 mg/dL (8.5-10.1) 04/02/19 06:00 Total Bilirubin 0.4 mg/dL (0.2-1) 04/02/19 06:00 AST 16 U/L (15-37) 04/02/19 06:00 ALT 19 U/L (13-61) 04/02/19 06:00 Alkaline Phosphatase 108 U/L (45-117) 04/02/19 06:00 Total Protein 7.6 g/dl (6.4-8.2) 04/02/19 06:00 Albumin 4.0 g/dl (3.4-5.0) 04/02/19 06:00 Urine Color Yellow 04/01/19 15:28 Urine Appearance Clear 04/01/19 15:28 Urine pH 5.5 (5.0-8.0) 04/01/19 15:28 Ur Specific [place] 1.043 (1.010-1.035) H 04/01/19 15:28 Urine Protein 1+ (NEGATIVE) H 04/01/19 15:28 Urine Glucose (UA) 3+ (NEGATIVE) H 04/01/19 15:28 Urine Ketones Negative (NEGATIVE) 04/01/19 15:28 Urine Blood Negative (NEGATIVE) 04/01/19 15:28 Urine Nitrite Negative (NEGATIVE) 04/01/19 15:28 Urine Bilirubin Negative (NEGATIVE) 04/01/19 15:28 Urine Urobilinogen 1.0 mg/dL (0.2-1.0) 04/01/19 15:28 Ur Leukocyte Esterase Negative (NEGATIVE) 04/01/19 15:28 Urine WBC (Auto) 2 /hpf (0-5) 04/01/19 15:28 Urine RBC (Auto) 1 /hpf (0-4) 04/01/19 15:28 Urine Casts (Auto) 0 /lpf (0-8) 04/01/19 15:28 U Epithel Cells (Auto) 1.2 /HPF (0-5/HPF) 04/01/19 15:28 Urine Crystals (Auto) Calcium oxalates /hpf 04/01/19 15:28 Urine Bacteria (Auto) 0.2 /hpf (NEGATIVE) 04/01/19 15:28 RPR Titer Nonreactive (NONREACTIVE) 04/02/19 06:00 lab noted - Treatment Hospital Course: Detox Protocol Followed, Detoxed Safely, Responded well, Discharged Condition Good, Rehab Referral Accepted Patient has Accepted a Rehab Referral to: as per counselor arrangement - Medication Discharge Medications: Ambulatory Orders Insulin Glargine,Hum.rec.anlog [Lantus] 15 unit SQ HS 10/06/18 Albuterol Sulfate Inhaler - [Ventolin HFA Inhaler -] 2 inh PO Q6H PRN #1 inhaler 10/09/18 Metformin HCl [Glucophage] 1,000 mg PO BID #28 tablet 10/09/18 Aspirin [ASA -] 81 mg PO DAILY 04/01/19 Atorvastatin Ca [Lipitor] 40 mg PO HS 04/01/19 Carvedilol [Coreg -] 6.25 mg PO BID 04/01/19 Clopidogrel Bisulfate [Plavix -] 75 mg PO DAILY 04/01/19 Lisinopril [Prinivil -] 40 mg PO DAILY 04/01/19 - Diagnosis (1) IDDM (insulin dependent diabetes mellitus) Current Visit: Yes Status: Chronic (2) Nicotine dependence Current Visit: Yes Status: Acute Qualifiers: Nicotine product type: cigarettes Substance use status: in withdrawal Qualified Code(s): F17.213 - Nicotine dependence, cigarettes, with withdrawal (3) COPD (chronic obstructive pulmonary disease) Current Visit: Yes Status: Chronic Qualifiers: COPD type: emphysema Emphysema type: unspecified Qualified Code(s): J43.9 - Emphysema, unspecified (4) Alcohol dependence with uncomplicated withdrawal Current Visit: Yes Status: Acute (5) HTN (hypertension) Current Visit: Yes Status: Chronic Qualifiers: Hypertension type: essential hypertension Qualified Code(s): I10 - Essential (primary) hypertension (6) Hypercholesterolemia Current Visit: Yes Status: Chronic (7) Nicotine dependence Current Visit: Yes Status: Acute Qualifiers: Nicotine product type: cigarettes Substance use status: in withdrawal Qualified Code(s): F17.213 - Nicotine dependence, cigarettes, with withdrawal - AMA Did Patient Leave Against Medical Advice: No
[2019-04-04] MEDS ORDERED: diazePAM 5 MG TABLET PO SCH (06:00)
== END 2019-04-03 15:20 | disposition home or self-care (01) | DRG 897 ==
LOC: YASAS 10:46 → Y3N 14:35
PROVIDERS: ADMIT Surgery; ATTEND Surgery
PROC: HZ2ZZZZ Detoxification Services for Substance Abuse Treatment (ICD-10-PCS; principal; 2019-04-01)
DX: F10.230 Alcohol dependence with withdrawal, uncomplicated (principal); F17.210 Nicotine dependence, cigarettes, uncomplicated; I25.10 Atherosclerotic heart disease of native coronary artery without angina pectoris; I10 Essential (primary) hypertension; Z95.1 Presence of aortocoronary bypass graft; Z95.5 Presence of coronary angioplasty implant and graft; E11.9 Type 2 diabetes mellitus without complications; Z79.4 Long term (current) use of insulin; J43.9 Emphysema, unspecified; E78.00 Pure hypercholesterolemia, unspecified; Z86.19 Personal history of other infectious and parasitic diseases
CPT/HCPCS: 36415; 80053; 81003; 82962; 85027; 86593; J0735